=== PATIENT | female | born 1955 | race Caucasian/White ===

== ENCOUNTER → 2020-01-09 | Emergency (ER) | payer OTHER ==
[~2020-01-09] MED LIST: DEXTROSE 50% SYRINGE 50 ML IV ONE
== END | disposition left against medical advice (07) ==
LOC: ER 09:41
DX: R41.82 Altered mental status, unspecified (principal); Z53.21 Procedure and treatment not carried out due to patient leaving prior to being seen by health care provider

== ENCOUNTER → 2020-01-09 | Emergency (ER) | payer OTHER ==
[~2020-01-09] VITALS: Ht 165.1 cm; Wt 54.4 kg
[~2020-01-09] MED LIST changes: +D5W/SOD CHL 0.45% 1,000 ML IV ONE; +DEXTROSE (50%) 50ML SYRG IV ONE; +DEXTROSE 10% 1,000 ML IV ONE; -DEXTROSE 50% SYRINGE 50 ML IV ONE; +cefTRIAXone 1GM/50ML D5W 50 ML IV ONE
[2020-01-09 11:14] LABS: Basophils # (auto) 0.1 10 ^3/uL (0-0.2); Basophils % (auto) 0.8 % (0.0-2.0); Eosinophils # (auto) 0 10 ^3/uL (0-0.8); Eosinophils % (auto) 0.5 % (0.0-7.0); Hematocrit 43.2 % (36.0-46.0); Hemoglobin 14.2 g/dL (12.2-16.2); Lymphocytes # (auto) 1.5 10 ^3/uL (0.4-5.4); Lymphocytes % (auto) 18.3 % (10.0-50.0); Mean Corpuscular Hemoglobin 30.9 pg (28.0-32.0); Mean Corpuscular Hgb Conc. 32.9 g/dL (32.0-36.0); Mean Corpuscular Volume 94.2 fL (80.0-100.0); Monocytes # (auto) 0.2 10 ^3/uL (0-1.3); Neutrophils # (auto) 6.3 10 ^3/uL (1.6-8.6); Neutrophils % (auto) 77.4 % (37.0-80.0); Nucleated Red Blood Cells % 0.1 %; Platelet Count (auto) 435 10^3/uL (140-450); Red Blood Cells 4.59 10^6/uL (4.0-5.20); Red Cell Distribution Width 14.1 % (11.8-14.3); White Blood Cell 8.1 10^3/uL (4.4-10.8)
[2020-01-09 12:27] LABS: INR 0.91 (0.9-1.15); Partial Thromboplastin Time 30.1 sec (23.64-32.05)
[2020-01-09 13:50] LABS: Albumin 3.3 g/dL (3.4-5.0); Anion Gap 8 (5-15); Blood Urea Nitrogen 15 mg/dL (7-18); Calcium 9.3 mg/dL (8.5-10.1); Carbon Dioxide 27 mmol/L (21-32); Chloride 110 mmol/L (98-107); Glucose 55 mg/dL (74-106); Sodium 145 mmol/L (136-145)
[2020-01-09 13:55] LABS: Alanine Aminotransferase 17 U/L (13-56); Alkaline Phosphatase 101 U/L (45-117); Aspartate Aminotransferase 15 U/L (15-37); BUN/Creatinine Ratio 25.9; Bilirubin, Total 0.2 mg/dL (0.2-1.0); GFR African American 133 mL/min; GFR Non-African American 110 mL/min; Total Protein 8.4 g/dL (6.4-8.2)
[2020-01-09 16:19] LABS: Urine Bacteria MANY /hpf (None Seen); Urine Blood Negative /uL (Negative); Urine Specific Gravity 1.005 (1.001-1.035); Urine WBC 109 /hpf (0 - 5); Urine WBC Clumps PRESENT /hpf (None Seen)
[2020-01-09 21:45] VITALS: BP 136/45
== END | disposition home or self-care (01) ==
LOC: ER 09:45
DX: G93.41 Metabolic encephalopathy (principal); N39.0 Urinary tract infection, site not specified; E11.649 Type 2 diabetes mellitus with hypoglycemia without coma; I10 Essential (primary) hypertension; F17.210 Nicotine dependence, cigarettes, uncomplicated; Z88.2 Allergy status to sulfonamides
CPT/HCPCS: 36415; 70450; 71045; 80053; 81001; 82962; 83735; 84484; 85025; 85610; 85730; 93005; 96365; 96375; 99291; J0696; J7042

== ENCOUNTER 2020-10-20 11:09 | Emergency (ER) | payer OTHER ==
[~2020-10-20] VITALS: Ht 165.1 cm; Wt 76.2 kg
[2020-10-20 12:08] LABS: Basophils # (auto) 0.1 10 ^3/uL (0-0.2); Basophils % (auto) 0.5 % (0.0-2.0); Eosinophils # (auto) 0.2 10 ^3/uL (0-0.8); Hematocrit 43.5 % (36.0-46.0); Hemoglobin 14.5 g/dL (12.2-16.2); Lymphocytes # (auto) 1.9 10 ^3/uL (0.4-5.4); Lymphocytes % (auto) 16.1 % (10.0-50.0); Mean Corpuscular Hgb Conc. 33.4 g/dL (32.0-36.0); Mean Corpuscular Volume 92.8 fL (80.0-100.0); Monocytes # (auto) 0.6 10 ^3/uL (0-1.3); Monocytes % (auto) 5.2 % (0.0-12.0); Neutrophils # (auto) 9.1 10 ^3/uL (1.6-8.6); Neutrophils % (auto) 76.2 % (37.0-80.0); Platelet Count (auto) 272 10^3/uL (140-450); Red Blood Cells 4.69 10^6/uL (4.0-5.20); Red Cell Distribution Width 13.3 % (11.8-14.3)
[2020-10-20 12:19] LABS: Albumin 3.4 g/dL (3.4-5.0); Magnesium 2.6 mg/dL (1.6-2.6); Potassium 4.1 mmol/L (3.5-5.1)
[2020-10-20 12:23] LABS: BUN/Creatinine Ratio 19.2; Bilirubin, Total 0.3 mg/dL (0.2-1.0); Total Protein 7.9 g/dL (6.4-8.2)
[2020-10-20 16:08] VITALS: BP 162/69
== END 2020-10-20 19:50 | disposition left against medical advice (07) ==
LOC: ER 11:09
DX: E11.649 Type 2 diabetes mellitus with hypoglycemia without coma (principal); I10 Essential (primary) hypertension; R07.9 Chest pain, unspecified; R41.82 Altered mental status, unspecified; Z79.4 Long term (current) use of insulin; Z88.2 Allergy status to sulfonamides
CPT/HCPCS: 36415; 70450; 71045; 80053; 82010; 82962; 83735; 84484; 85025; 93005

== ENCOUNTER 2025-01-06 13:51 | Inpatient (IN) | payer OTHER ==
[~2025-01-06] VITALS: Ht 167.6 cm; Wt 79.0 kg
--- NOTE | 2025-01-06 13:56 | ED.PDOC ---
History of Present Illness HPI Comments 70-year-old female brought by paramedics from home because of nausea vomiting diarrhea for the past two days. Family members did state that she had a syncopal episode while in the bathroom this morning. She denies abdominal pain. States that she can not tolerate any liquids or solid food. She does have a history of hypertension diabetes. Her blood pressure on arrival was 140/77 with a heart rate of 86 saturation 97% on room air. She does ambulate with the help of a walker. Denies chest pain. Denies shortness a breath. Denies any other symptoms. Time Seen by MD: 13:53 Reviewed Notes: Nurses Notes, Medications, Allergies Allergies: Coded Allergies: Sulfamethoxazole w/Trimethoprim (Verified Allergy, Unknown, 01/09/20) Information Source: Patient, Emergency Med Personnel Mode of Arrival: EMS Severity: Moderate Timing: Days Duration: Since onset Past Medical History PAST MEDICAL HISTORY: DM, HTN Surgical History: Denies all surgeries SPECIAL NEEDS LIBRARIAN History: Denies all SPECIAL NEEDS LIBRARIAN Hx Family History Family History: Family hx of DM Social History Smoker: Cigarettes, Less Than 1 Pack/Day Alcohol: Denies ETOH Use Drugs: Denies Drug Use Lives In: Home Constitutional: denies: chills, diaphoresis, fatigue, fever, malaise, sweats, weakness, others EENTM: denies: blurred vision, double vision, ear bleeding, ear discharge, ear drainage, ear pain, ear ringing, eye pain, eye redness, hearing loss, mouth pain, mouth swelling, nasal discharge, nose bleeding, nose congestion, nose pain, photophobia, tearing, throat pain, throat swelling, voice changes, others Respiratory: denies: cough, hemoptysis, orthopnea, SOB at rest, shortness of breath, SOB with excertion, stridor, wheezing, others Cardiovascular: denies: chest pain, dizzy spells, diaphoresis, Dyspnea on exertion, edema, irregular heart beat, left arm pain, lightheadedness, palpitations, PND, syncope, others Gastrointestinal: reports: diarrhea, nausea, vomiting; denies: abdomen distended, abdominal pain, blood streaked bowels, constipated, dysphagia, difficulty swallowing, hematemesis, melena, poor appetite, poor fluid intake, rectal bleeding, rectal pain, others Genitourinary: denies: abnormal vagina bleeding, burning, dyspareunia, dysuria, flank pain, frequency, hematuria, incontinence, pain, , vagina discharge, urgency, others Neurological: denies: dizziness, fainting, headache, left sided numbness, left sided weakness, numbness, paresthesia, pre-existing deficit, right sided numbness, right sided weakness, seizure, speech problems, tingling, tremors, weakness, others Musculoskeletal: denies: back pain, gout, joint pain, joint swelling, muscle pain, muscle stiffness, neck pain, others Integumetry: denies: bruises, change in color, change in hair/nails, dryness, laceration, lesions, lumps, rash, wounds, others Allergic/Immunocompromised: denies: Difficulty Healing, Frequent Infections, Hives, Itching, others Hematologic/Lymphatic: denies: anemia, blood clots, easy bleeding, easy bruising, swollen glands, others Endocrine: denies: excessive hunger, excessive sweating, excessive thirst, excessive urination, flushing, intolerance to cold, intolerance to heat, unexplained weight gain, unexplained weight loss, others Psychiatric: denies: anxiety, bipolar disorder, depression, hopeless, panic disorder, schizophrenia, sleepless, suicidal, others Physical Exam General Appearance: Moderate Distress HEENT: Normal ENT Inspection, Pharynx Normal, TMs Normal Neck: Full Range of Motion, Non-Tender, Normal, Normal Inspection Respiratory: Chest Non-Tender, Lungs Clear, No Accessory Muscle Use, No Respiratory Distress, Normal Breath Sounds Cardiovascular: No Edema, No JVD, No Murmur, No Gallop, Normal Peripheral Pulses, Regular Rate/Rhythm Breast Exam: Deferred Gastrointestinal: No Organomegaly, Non Tender, No Pulsatile Mass, Normal Bowel Sounds, Soft Genitalia: Deferred Pelvic: Deferred Rectal: Deferred Extremities: No calf tenderness, Normal capillary refill, Normal inspection, Normal range of motion, Non-tender, No pedal edema Musculoskeletal : Apperance: Normal Neurologic: Alert, No Motor Deficits, No Sensory Deficits Cerebellar Function: NOT DONE Reflexes: NOT DONE Skin: Dry, Normal Color, Warm Peripheral Pulses: 3+ Radial (R), 3+ Radial (L) Lymphatic: No Adenopathy Was a procedure done? Was a procedure done?: No Differential Dx Considerations may include: Gastroenteritis Electrolyte imbalance X-Ray, Labs, Meds, VS Vital Signs Date Time Temp Pulse Resp B/P (MAP) Pulse Ox O2 Delivery O2 Flow Rate FiO2 01/06/25 14:00 98.1 87 18 140/84 (102) 96 01/06/25 13:55 86 Lab Test 01/06/25 14:12 Range/Units White Blood Count 11.0 H 4.4-10.8 10^3/uL Red Blood Count 4.39 4.0-5.20 10^6/uL Hemoglobin 13.0 12.2-16.2 g/dL Hematocrit 38.4 36.0-46.0 % Mean Corpuscular Volume 87.4 80.0-100.0 fL Mean Corpuscular Hemoglobin 29.7 28.0-32.0 pg Mean Corpuscular Hemoglobin Concent 34.0 32.0-36.0 g/dL Red Cell Distribution Width 13.3 11.8-14.3 % Platelet Count 339 140-450 10^3/uL Mean Platelet Volume 9.0 6.9-10.8 fL Neutrophils (%) (Auto) 73.7 37.0-80.0 % Lymphocytes (%) (Auto) 19.5 10.0-50.0 % Monocytes (%) (Auto) 5.4 0.0-12.0 % Eosinophils (%) (Auto) 1.0 0.0-7.0 % Basophils (%) (Auto) 0.4 0.0-2.0 % Neutrophils # (Auto) 8.1 1.6-8.6 10 ^3/uL Lymphocytes # (Auto) 2.2 0.4-5.4 10 ^3/uL Monocytes # (Auto) 0.6 0-1.3 10 ^3/uL Eosinophils # (Auto) 0.1 0-0.8 10 ^3/uL Basophils # (Auto) 0 0-0.2 10 ^3/uL Nucleated Red Blood Cells 0.0 % Sodium Level 146 H 136-145 mmol/L Potassium Level 3.7 3.5-5.1 mmol/L Chloride Level 112 H 98-107 mmol/L Carbon Dioxide Level 27 20-31 mmol/L Anion Gap 7 5-15 Blood Urea Nitrogen 18 9-23 mg/dL Creatinine 1.01 0.550-1.02 mg/dL Glomerular Filtration Rate Calc 59 >90 mL/min BUN/Creatinine Ratio 17.8 10.0-20.0 Serum Glucose 50 L 74-106 mg/dL Calcium Level 9.3 8.7-10.4 mg/dL Troponin I High Sensitivity 78 *H </=34 ng/L [place] [id number] Ph: [phone] DIAGNOSTIC IMAGING Diagnostic Imaging Report : [id number] Signed PATIENT: JAY MENDOZA ACCT: [id number] UNIT: [id number] : 1955 LOC: ER ROOM / BED: / AGE / SEX: 70 / F ADM STATUS: REG ER SERVICE 1359 ORDERING PHYSICIAN: VARSHA SINGER MD PROCEDURE(s): CXRP - CHEST PORTABLE REASON: sob ORDER NUMBER(s): [id number], ACCESSION NUMBER(s): [id number] CHEST RADIOGRAPH Indication: sob Technique: Single frontal view of the chest was obtained Comparison: CHEST PORTABLE on DOS: 10/20/20, CHEST PORTABLE on DOS: 01/09/20 FINDINGS: Lines and Tubes: None Lungs: No focal consolidation. Pleura: No effusion. No pneumothorax. Cardiomediastinal contours: Unremarkable Bones: No acute osseous abnormality. IMPRESSION: 1. No acute cardiopulmonary disease. ATED BY: JAMES HYATT Jr., DO DICTATED DATE/TIME: 01/06/251419 SIGNED BY: JAMES HYATT Jr., SIGNED DATE/TIME: 01/06/25 142 CC: [address] [address] Ph: [phone] DIAGNOSTIC IMAGING Diagnostic Imaging Report : [id number] Signed PATIENT: JAY MENDOZA ACCT: [id number] UNIT: [id number] : 1955 LOC: ER ROOM / BED: / AGE / SEX: 70 / F ADM STATUS: REG ER SERVICE 1413 ORDERING PHYSICIAN: VARSHA SINGER MD PROCEDURE(s): HWOCT - HEAD WITHOUT CONTRAST REASON: syncope ORDER NUMBER(s): [id number], ACCESSION NUMBER(s): [id number] EXAM: CT HEAD WITHOUT CONTRAST INDICATION: syncope TECHNIQUE: CT of the head without intravenous contrast. Radiation Dose Information: CT Dose: CTDI volume is 50.4 mGy. Dose-length product is 1033.98 mGy*cm The dose indicators for CT are the volume Computed Tomography (CT) Dose Index (CTDIvol) and the Dose Length Product (DLP), and are measured in units of mGy and mGy-cm, respectively. These indicators are not patient dose, but values generated from the CT scanner acquisition factors. The report includes radiation exposure data for exposures received during this examination. COMPARISON: HEAD WITHOUT CONTRAST on DOS: 10/20/20, HEAD WITHOUT CONTRAST on DOS: 01/09/20 FINDINGS: There is no evidence of acute intracranial hemorrhage, extra-axial collection, mass effect, midline shift, herniation or hydrocephalus. Area of encephalomalacia left occipital, posterior parietal lobe consistent with old infarct. Not present 10/20/2020. The ventricles, sulci and cisterns are age appropriate. The alvarado-white differentiation is intact. Patchy periventricular and subcortical white matter hypoattenuation is nonspecific but may be related to small vessel ischemic disease. Opacified right maxillary sinuses and mastoid air cells are clear. May represent a mucocele there is mass effect in the right nasal cavity. The surrounding soft tissues and osseous structures are unremarkable. IMPRESSION: 1. Old area of ischemia left occipital and posterior parietal lobes not present 10/20/2020. 2. No acute intracranial hemorrhage. 3. Opacification right maxillary sinus with opacification of the right infundibulum. ATED BY: JAMES HYATT Jr., DO DICTATED DATE/TIME: 01/06/25 1447 SIGNED BY: JAMES HYATT Jr., SIGNED DATE/TIME: 01/06/25 1447 CC: Patient alert. Complaining of nausea vomiting diarrhea. Vitals stable. Answering questions. Abdomen is soft nontender. She did have a syncopal episode while in the bathroom. Establish intravenous access. Was given fluids. Reviewed her history. Explained to the patient. Continue cardiac monitoring. EKG reviewed does not show any acute changes. Right bundle branch block. Cardiac marker elevated. Was given Lovenox. Unstable for transfer. CT scan of the head does reveal old stroke. Possibly will need MRI. [facility] approved inpatient admission [id number]. Time of 1ST Reevaluation: 14:01 Reevaluation 1ST: Unchanged Patient Education/Counseling: Diagnosis, Treatment, Prognosis Family Education/Counseling: No Family Present Departure 1 Departure Time of Disposition: 14:03 Impression: Primary Impression: NSTEMI (non-ST elevated myocardial infarction) Additional Impressions: Uncontrolled diabetes mellitus Qualified Codes: E13.65 - Other specified diabetes mellitus with hyperglycemia Near syncope Disposition: ADMITTED INPATIENT Admit to: Med Surg Condition: Guarded Critical Care Note Critical Care Time?: No Stability Stability form required: No Heart Score Heart Score: Heart Score Response (Comments) Value History Slightly Suspicious 0 EKG Normal 0 Age >65 2 Risk Factors >3 or Hx ASHD 2 Troponin Normal limit 0 Total 4 I personally scribed for VARSHA SINGER MD ([email or web address]) on 01/06/25 at 15:09. Electronically submitted by Claudine Acuña ([email or web address]). I personally scribed for VARSHA SINGER MD ([email or web address]) on 01/06/25 at 15:10. Electronically submitted by Claudine Acuña ([email or web address]). VARSHA SINGER MD Jan 06, 2025 13:56
--- NOTE | 2025-01-06 14:22 | DVH ---
CHEST RADIOGRAPH Indication: sob Technique: Single frontal view of the chest was obtained Comparison: CHEST PORTABLE on DOS: 10/20/20, CHEST PORTABLE on DOS: 01/09/20 FINDINGS: Lines and Tubes: None Lungs: No focal consolidation. Pleura: No effusion. No pneumothorax. Cardiomediastinal contours: Unremarkable Bones: No acute osseous abnormality. IMPRESSION: 1. No acute cardiopulmonary disease.
--- NOTE | 2025-01-06 14:22 | ECG ---
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
[2025-01-06 14:26] LABS: Basophils # (auto) 0 10 ^3/uL (0-0.2); Basophils % (auto) 0.4 % (0.0-2.0); Eosinophils # (auto) 0.1 10 ^3/uL (0-0.8); Hematocrit 38.4 % (36.0-46.0); Lymphocytes # (auto) 2.2 10 ^3/uL (0.4-5.4); Lymphocytes % (auto) 19.5 % (10.0-50.0); Mean Corpuscular Hemoglobin 29.7 pg (28.0-32.0); Mean Corpuscular Volume 87.4 fL (80.0-100.0); Monocytes # (auto) 0.6 10 ^3/uL (0-1.3); Monocytes % (auto) 5.4 % (0.0-12.0); Neutrophils # (auto) 8.1 10 ^3/uL (1.6-8.6); Neutrophils % (auto) 73.7 % (37.0-80.0); Platelet Count (auto) 339 10^3/uL (140-450); Red Blood Cells 4.39 10^6/uL (4.0-5.20); Red Cell Distribution Width 13.3 % (11.8-14.3)
[2025-01-06 14:32] LABS: Potassium 3.7 mmol/L (3.5-5.1)
[2025-01-06 14:33] LABS: Anion Gap 7 (5-15); Carbon Dioxide 27 mmol/L (20-31)
[2025-01-06 14:34] LABS: Calcium 9.3 mg/dL (8.7-10.4)
[2025-01-06 14:38] LABS: BUN/Creatinine Ratio 17.8 (10.0-20.0); Blood Urea Nitrogen 18 mg/dL (9-23)
[2025-01-06 14:45] LABS: Chloride 112 mmol/L (98-107); Glucose 50 mg/dL (74-106); Sodium 146 mmol/L (136-145)
--- NOTE | 2025-01-06 14:49 | DVH ---
EXAM: CT HEAD WITHOUT CONTRAST INDICATION: syncope TECHNIQUE: CT of the head without intravenous contrast. Radiation Dose Information: CT Dose: CTDI volume is 50.4 mGy. Dose-length product is 1033.98 mGy*cm The dose indicators for CT are the volume Computed Tomography (CT) Dose Index (CTDIvol) and the Dose Length Product (DLP), and are measured in units of mGy and mGy-cm, respectively. These indicators are not patient dose, but values generated from the CT scanner acquisition factors. The report includes radiation exposure data for exposures received during this examination. COMPARISON: HEAD WITHOUT CONTRAST on DOS: 10/20/20, HEAD WITHOUT CONTRAST on DOS: 01/09/20 FINDINGS: There is no evidence of acute intracranial hemorrhage, extra-axial collection, mass effect, midline s hift, herniation or hydrocephalus. Area of encephalomalacia left occipital, posterior parietal lobe consistent with old infarct. Not present 10/20/2020. The ventricles, sulci and cisterns are age appropriate. The alvarado-white differentiation is intact. Patchy periventricular and subcortical white matter hypoattenuation is nonspecific but may be related to small vessel ischemic disease. Opacified right maxillary sinuses and mastoid air cells are clear. May represent a mucocele there is mass effect in the right nasal cavity. The surrounding soft tissues and osseous structures are unremarkable. IMPRESSION: 1. Old area of ischemia left occipital and posterior parietal lobes not present 10/20/2020. 2. No acute intracranial hemorrhage. 3. Opacification right maxillary sinus with opacification of the right infundibulum.
[2025-01-06] MEDS: DEXTROSE (50%) 50ML SYRG IV ONE (15:33)
[2025-01-06] MEDS: DEXTROSE 50% SYRINGE 50 ML IV ONE (15:35)
[2025-01-06] MEDS: SODIUM CHLORIDE 0.9% 1,000 ML IV ONE ×3 (15:45→18:14)
[2025-01-06] MEDS: DEXTROSE 10% 1,000 ML IV ONE (15:45)
[2025-01-06 16:44] VITALS: PULSE 85; RESP 17; O2SAT 97
[2025-01-06] MEDS: PIPERACILLIN-TAZOB 3.375GM 100 ML IV ONE (16:54)
[2025-01-06] MEDS: ENOXAPARIN SOD 100 MG/1 ML SYRINGE SC ONE (17:21)
[2025-01-06] MEDS: metroNIDAZOLE 500MG/100ML 100 ML IV ONE (17:25)
[2025-01-06 19:35] VITALS: PULSE 85; RESP 17; O2SAT 97
[2025-01-06] MEDS ORDERED: ACETAMINOPHEN 325 MG TAB PO PRN (21:30)
[2025-01-06] MEDS ORDERED: DOCUSATE SOD 100 MG CAP PO PRN (21:30)
[2025-01-06] MEDS ORDERED: ONDANSETRON HCL 4 MG/2 ML VIAL IV PRN (21:30)
--- NOTE | 2025-01-06 22:02 | DVHHPRES ---
History of Present Illness Resident Creating Document: TAMIA GARCIA RESIDENT History of Present Illness This is a 70-year-old male with past medical history of hypertension, dyslipidemia, type 2 diabetes mellitus, stroke in April of 2023 with no residual deficits. The patient presented to the ED due to syncopal episode. Per daughter, she found out patient lying down half of the body on the floor half of the right side lying in the toilet. The daughter states that the patient was complaining of chest pain below the right breast and was having nausea/vomiting after syncopal episode. Patient does not remember the event and is not able to provide a clear history. Most of the details were obtained from daughter. On my examination, the patient was reporting nausea but no vomiting since admission. The patient still complaining of right rib cage pain with the right breast that gets worse with palpation. The pain is located the level of the last rib in the right side with no specific pattern of radiation. Patient is currently on 2 L of oxygen through nasal cannula saturating 97%, denies fever, chills, chest pain, shortness of breath or any other complaints at this time. Initial labs showed a WBC of 11.0, BMP was grossly unremarkable and troponins came back slightly elevated. EKG showed sinus rhythm with a right bundle branch block but no ST segment elevation or depression at this time. Initial chest x- ray showed no evidence of clear consolidations/pneumonia, vascular congestion or any other intrathoracic disease. Initial head CT showed all area of ischemia in the left occipital and posterior parietal lobes. No acute ischemia or hemorrhage at this time. The patient denies palpitations, we will admit the patient for further assessment and management. Past medical history: Diabetes type 2, hypertension, dyslipidemia, stroke in April of 2023 Home medications: Humulin 40 units daily, insulin R 15 units q.a.m., 15 units q.p.m., lisinopril 40 mg daily, atorvastatin 40 mg daily, anastrozole 1 mg daily, aspirin 81 mg daily Social history: Smokes few cigarettes daily, no alcohol or drugs. 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 Endocrine: Diabetes Past Surgical History: None Family History: None Smoke: <1 pack per day ALCOHOL: none Drugs: None Lives: with Family Domestic Violence: Neg Review of Systems Constitutional: Yes: Weakness, Malaise; No: Fever, Chills, Sweats, Other Eyes: No: Pain, Vision change, Conjunctivae inflammation, Eyelid inflammation, Other, Redness ENT: No: Ear pain, Ear discharge, Nose pain, Nose discharge, Nose congestion, Mouth pain, Mouth swelling, Throat pain, Throat swelling, Other Respiratory: No: Cough, Dry, Shortness of breath, SOB with excertion, Wheezing, Hemoptysis, Pleuritic Pain, Sputum, Wheezing, Other Cardiovascular: Chest Pain (Sided chest pain in the last review of the right side below the right breast.); No: Palpitations, Orthopnea, Paroxysmal Noc. Dyspnea, Edema, Lt Headedness, Other Gastrointestinal: Nausea; No: Vomiting, Abdominal Pain, Diarrhea, Constipation, Melena, Hematochezia, Other Genitourinary: No Dysuria, No Frequency, No Incontinence, No Hematuria, No Retention, No Other Musculoskeletal: No: other, neck pain, shoulder pain, arm pain, back pain, hand pain, leg pain, foot pain Skin: No: Rash, Lesions, Jaundice, Bruising, Other Neurological: Weakness; No: Numbness, Incoordination, Change in speech, Confusion, Seizures, Other Allergies: Coded Allergies: Sulfamethoxazole w/Trimethoprim (Verified Allergy, Unknown, 01/09/20) Exam Vital Signs Vital Signs Date Time Temp Pulse Resp B/P (MAP) Pulse Ox O2 Delivery O2 Flow Rate FiO2 01/06/25 19:35 85 17 97 Room Air* 0 21 01/06/25 19:00 156/72 (100) 01/06/25 16:44 97.6 97.6 General Appearance: Alert, Oriented X3, Cooperative, No acute distress HEENT: Atraumatic, PERRLA, EOMI, Mucous membr. moist/pink Respiratory: Clear to auscultation, Normal air movement Cardiovascular: Regular rate, Normal S1, Normal S2, No murmurs Abdominal: Normal bowel sounds, Soft, No tenderness, No hepatospenomegaly, Other (That is right upper quadrant tenderness at the level of the last right sided rib below the right breast.) Extremities: No clubbing, No cyanosis, No edema, Normal pulses, No tenderness/swelling Skin: No rashes, No breakdown, No significant lesion Neuro: Normal gait, Normal speech, Strength at 5/5 X4 ext, Normal tone, Sensation intact, Cranial nerves 3-12 NL, Reflexes 2+ Psych/Mental Status: Mental status NL, Mood NL Labs/Xrays Labs Test 01/06/25 17:42 01/06/25 16:39 01/06/25 15:45 01/06/25 14:12 Range/Units Troponin I High Sensitivity 80 *H </=34 ng/L POC Glucose 121 H 70-106 mg/dl Lactic Acid Level 1.0 0.4-2.0 mmol/L White Blood Count 11.0 H 4.4-10.8 10^3/uL Red Blood Count 4.39 4.0-5.20 10^6/uL Hemoglobin 13.0 12.2-16.2 g/dL Hematocrit 38.4 36.0-46.0 % Mean Corpuscular Volume 87.4 80.0-100.0 fL Mean Corpuscular Hemoglobin 29.7 28.0-32.0 pg Mean Corpuscular Hemoglobin Concent 34.0 32.0-36.0 g/dL Red Cell Distribution Width 13.3 11.8-14.3 % Platelet Count 339 140-450 10^3/uL Mean Platelet Volume 9.0 6.9-10.8 fL Neutrophils (%) (Auto) 73.7 37.0-80.0 % Lymphocytes (%) (Auto) 19.5 10.0-50.0 % Monocytes (%) (Auto) 5.4 0.0-12.0 % Eosinophils (%) (Auto) 1.0 0.0-7.0 % Basophils (%) (Auto) 0.4 0.0-2.0 % Neutrophils # (Auto) 8.1 1.6-8.6 10 ^3/uL Lymphocytes # (Auto) 2.2 0.4-5.4 10 ^3/uL Monocytes # (Auto) 0.6 0-1.3 10 ^3/uL Eosinophils # (Auto) 0.1 0-0.8 10 ^3/uL Basophils # (Auto) 0 0-0.2 10 ^3/uL Nucleated Red Blood Cells 0.0 % Sodium Level 146 H 136-145 mmol/L Potassium Level 3.7 3.5-5.1 mmol/L Chloride Level 112 H 98-107 mmol/L Carbon Dioxide Level 27 20-31 mmol/L Anion Gap 7 5-15 Blood Urea Nitrogen 18 9-23 mg/dL Creatinine 1.01 0.550-1.02 mg/dL Glomerular Filtration Rate Calc 59 >90 mL/min BUN/Creatinine Ratio 17.8 10.0-20.0 Serum Glucose 50 L 74-106 mg/dL Calcium Level 9.3 8.7-10.4 mg/dL Assessment/Plan Assessment/Plan Assessment/Plan Syncopal episode likely due to hypoglycemia? R/O cardiac syncope ruled out acute stroke ruled out orthostatic hypotension -initial chest x-ray was grossly clear with no evidence of consolidation or vascular congestion. -head CT showed old areas of ischemia the left occipital and posterior parietal lobes -orthostatic vitals supine 130/44 mmHg, sitting 140 force/57 mmHg, standing 123/53 mmHg (negative) -currently on 2 L of oxygen through nasal cannula saturating 97% -troponins were slightly elevated -echocardiogram was ordered -EKG showed sinus rhythm with a right bundle branch block with no ST segment elevation or depression. -monitor blood pressure closely -monitor blood glucose closely NSTEMI likely type II -Trops were slightly elevated at 78-74-80 -Trend trops Primary hypertension -Restart lisinopril 40mg daily -Monitor BP Dyslipidemia -Ordered lipid panel -Atorvastatin 40mg daily Type II Diabetes Mellitus -Ordered HbA1c -currently hypoglycemic, receiving dextrose -Will restart Lantus once patient is stabilized Left hand pain/inflammation, R/O dislocation or fracture -Ordered Left hand xray -Acetaminophen and ketorolac for pain modulation Goals of care discussed with the patient and daughter at bedside for > 35min, FULL CODE Plan discussed with Dr. Chambers Plan discussed with: Patient, Daughter My Orders Orders - TAMIA GARCIA Procedure Category Date Status Time Admit ADMIT 01/06/25 Transmitted 21:25 Code Status CODE 01/06/25 Transmitted 21:25 Vital Signs TRU 01/06/25 In Process 21:25 Review Orders With TRU 01/06/25 In Process Adm. 21:25 Encourage Activity As TRU 01/06/25 In Process Tolerate 21:25 Regular Diet DIET 01/07/25 Transmitted Breakfast Docusate Sodium PHA 01/06/25 Logged Capsule (Colace 21:30 Acetaminophen Tablet PHA 01/06/25 Logged (Tylenol Tablet) 21:30 Notify Of Changes TRU 01/06/25 In Process From Base 21:25 Advance Directive TRU 01/06/25 In Process 21:25 Urinalysis LAB 01/06/25 Logged 21:25 Lipid Panel LAB 01/06/25 Logged 21:25 Patient Condition ORDERS 01/06/25 Transmitted 21:25 Allergies TRU 01/06/25 In Process 21:25 Ondansetron Hcl PHA 01/06/25 Logged (Zofran) 21:30 Drug Screen LAB 01/06/25 Logged 21:25 Hemoglobin A1c LAB 01/06/25 In Process 21:25 Enoxaparin Sodium PHA 01/07/25 Logged (Lovenox) 10:00 Date of Service: Jan 06, 2025 Billing Provider: FER CHAMBERS MD Common Visit Codes: 59978-[id number] INP/OBS CARE (HIGH) Secondary Visit Codes: [id number] CARE PLAN 30 MINUTES TAMIA GARCIA RESIDENT Jan 06, 2025 22:02 FER CHAMBERS MD Jan 11, 2025 17:19
--- NOTE | 2025-01-06 22:08 | DVH ---
CLINICAL INDICATION: deformed hand TECHNIQUE: 3 radiographic views of the right hand were obtained. Comparison: None FINDINGS/IMPRESSION: Healing fracture distal aspect 5th metacarpal The visualized joint space is well maintained. The alignment is anatomical. There is no radiopaque foreign body.
[2025-01-06 22:28] LABS: Alanine Aminotransferase 16 U/L (7-40); Albumin 3.6 g/dL (3.2-4.8); Alkaline Phosphatase 97 U/L (46-116); Aspartate Aminotransferase 22 U/L (13-40); Cholesterol 128 mg/dL (< 200); LDL Cholesterol 64 mg/dL (< 100); Total Protein 6.4 g/dL (5.7-8.2)
[2025-01-06 22:31] LABS: Bilirubin, Direct < 0.1 mg/dL (<0.3); Bilirubin, Total 0.3 mg/dL (0.2-1.0); HDL Cholesterol 32 mg/dL (40-59); Triglycerides 223 mg/dL (< 150)
[2025-01-07 06:21] LABS: Barbiturate Scree,Urine Neg (NEGATIVE); Opiate Scree,Urine Neg (NEGATIVE)
[2025-01-07 06:22] LABS: Amphetamine Screen, Urine Neg (NEGATIVE); Benzodiazephine Screen, Urine Neg (NEGATIVE); Cannabinoid Screen, Urine Neg (NEGATIVE); Cocaine Screen, Urine Neg (NEGATIVE); Phencyclidine Screen, Urine Neg (NEGATIVE)
[2025-01-07] MEDS: INSULIN LANTUS (GLARGINE) 1 /0.01ml (100units/ml) SC SCH (06:35)
[2025-01-07] MEDS: LISINOPRIL 20 MG TAB PO SCH (06:35)
[2025-01-07 06:37] LABS: Urine Bacteria FEW /hpf (None Seen); Urine Blood Negative /uL (Negative); Urine Clarity Clear (Clear); Urine Color Light-Yellow (Yellow); Urine Protein, UAD 2+ (Negative); Urine Specific Gravity 1.008 (1.001-1.035); Urine Squamous Epithelial Cell FEW /hpf (<5); Urine Urobilinogen Normal (Negative); Urine WBC 3 /HPF (0-5); Urine pH 5.5 (5.0-9.0)
[2025-01-07 07:45] VITALS: PULSE 81; RESP 16; O2SAT 93
[2025-01-07] MEDS: ENOXAPARIN SOD 40 MG/0.4 ML SYRINGE SC SCH (10:58)
[2025-01-07] MEDS: ASPirin 81 mg TAB PO SCH (10:59)
[2025-01-07] MEDS: ATORVASTATIN 20 MG TAB PO SCH (11:00)
[2025-01-07] MEDS ORDERED: DEXTROSE (50%) 50ML SYRG IV PRN (12:30)
--- NOTE | 2025-01-07 13:55 | DVHPN2 ---
Assessment/Plan Assessment/Plan Progress note 70 yo F with CVA IDDM admitted for syncope and fall. Per daughter bedside, patient was seen before with same issues, had episodes of hypoglycemia in the past. on insulin regular and NPH. Progress note Alert oriented x2 Clear breath sounds s1 s2 rrr no murmur abdomen soft nontender no le edema labs ekg imaging reviewed assessment and plan IDDM with hypo and hyperglycemia syncope 2/2 above? rule out cardiac typ2 NH demand ischemia RBBB hand pain s/p fall hypertension hld old CVA dementia likely vascular hold insulin, start nph tomorrow ISS today d10 if persistently hypoglycemic toradol tylenol resume jaky emeds telemetry, if no event can be discharged tomorrow diet cardiac dvt ppx lovenox Plan discussed with: Patient My Orders Orders - PRIMITIVO OSEGUERA MD Procedure Category Date Status Time Insulin Nph Isophane PHA 01/08/25 In Process (Human) (Novolin N) 07:00 Glucose Blood PHA 01/07/25 In Process (Accu-Chek Comfort 17:00 Insulin R (Human) PHA 01/07/25 In Process (Insulin R) 22:00 Insulin R (Human) PHA 01/07/25 In Process (Insulin R) 17:00 Dextrose 50% Syringe PHA 01/07/25 In Process 12:30 Basic Metabolic Panel LAB 01/08/25 Verified 04:00 Complete Blood Count LAB 01/08/25 Verified 04:00 Magnesium LAB 01/08/25 Verified 04:00 Phosphorus LAB 01/08/25 Verified 04:00 Consistent DIET 01/07/25 Transmitted Carb(Ccho)Diabetes Lunch Date of Service: Jan 07, 2025 Billing Provider: PRIMITIVO OSEGUERA MD Common Visit Codes: 36210-[id number] INP/OBS CARE(HIGH) PRIMITIVO OSEGUERA MD Jan 07, 2025 13:55
--- NOTE | 2025-01-07 14:26 | DVHSR ---
APPROVED REPORT EXAM: Two-dimensional and M-mode echocardiogram with Doppler and color Doppler. Blood Pressure: 182/66 mmHg INDICATION ef RISK FACTORS Height: 5'6, Weight: 200 DIMENSIONS LVDd4.5 (3.8-5.7cm)LA (2D)4.6 (1.9-4.0cm)Aortic Root3.2 (2.0-3.7cm) LVDs2.7 (2.5-4.0cm)LA (MM) (1.9-4.0cm)Aortic Cusp Exc1.1 (1.5-2.0cm) EF (%) 65.0 (55-70%)Rt. Atrium3.5 (1.9-4.0cm)Asc. Aorta3.0 cm IVSd1.1 (0.7-1.1cm)RV (D)3.6 (1.8-2.4cm) PWd1.3 (0.7-1.1cm) Mitral Valve MitralMitral Stenosis E wave0.98m/sMV Mean GR.4mmHg A wave1.41m/sMV Peak GR.59mmHg E/A ratio0.72D MVAcm2 DECEL [id number] 1/2 Timems Aortic Valve Aortic ValveAortic Stenosis V11.06m/Radihka Mean GR.23mmHg V23.02m/Radhika Peak GR.36mmHg LVOT Diameter2.1 (1.8-2.4cm)Doppler AVA1.22cm2 Pulmonic Valve V21.15m/s Tricuspid Valve TR Velocity2.15m/s [id number] Conclusion lvef 55-60% by visual estimate normal rv function normal atria no severe valve abnormalities noted moderate MAC, mild mitral stenosis mean gradient of 3.5 mmhg
--- NOTE | 2025-01-07 15:28 | DVHINCON2 ---
[facility] 01/07/25 1528: Date Seen: Jan 07, 2025 Referring Physician MD Alana Reason for Consultation NSTEMI History of Present Illness This is a 70-year-old female patient who presents to emergency room with chief complaint of syncope, nausea, and vomiting. According to the patient's daughter who was at bedside, the patient was in the restroom when suddenly a loud commotion was heard. Per the patient's daughter, when she went to check on the patient the patient was on the floor in between the bath tub and the toilet. The patient was awake but not verbally responsive. Per the patient's daughter, her blood sugar was checked and was in the 70s per home monitor. Patient also had two episodes of nausea with emesis. EMS was called and the patient was brought to the emergency room. Upon emergency room arrival, the patient's blood glucose was noted to be 50. Cardiology has been consulted at this time for elevated troponin level. Initial twelve lead electrocardiogram reveals normal sinus rhythm with right bundle branch block, left ventricular hypertrophy and prolonged QTc interval. Initial troponin level of 78ng/L with flat trend thereafter. The patient denies any cardiac symptoms. Significant past medical history includes hypertension, dyslipidemia, type 2 diabetes mellitus, CVA without deficit, asthma, breast cancer status post lumpectomy/radiation/chemo, previous tobacco use and obesity. The patient denies following up with a log grader in the outpatient setting. Past Medical History Past medical history reviewed. No other significant than mentioned above. Past Surgical History Left Breast lumpectomy Cholecystectomy Family History Family history reviewed. Social History Patient has a 15 pack-year history, quit approximately one year ago Denies any alcohol use Denies any drug use Allergies: Coded Allergies: Sulfamethoxazole w/Trimethoprim (Verified Allergy, Unknown, 01/09/20) Home Meds Home medications reviewed. Current Medications Current Medications Medications (Trade) Dose Ordered Sig/Kaveh Route PRN Reason Start Time Stop Time Status Last Admin Docusate Sodium (Colace Capsule) 100 mg BIDPRN PRN PO FOR CONSTIPATION 01/06/25 21:30 01/07/25 12:21 DC Acetaminophen (Tylenol Tablet) 650 mg Q6HP PRN PO PAIN SCALE 1-3 OR TEMP>100.4 01/06/25 21:30 01/07/25 12:21 DC Ondansetron HCl (Zofran) 4 mg Q4HP PRN IV NAUSEA / VOMITING 01/06/25 21:30 01/07/25 12:21 DC Enoxaparin Sodium (Lovenox) 40 mg DAILY SC 01/07/25 10:00 01/07/25 10:58 Lisinopril (Zestril Tablet) 40 mg DAILY PO 01/07/25 10:00 01/07/25 06:35 Atorvastatin Calcium (Lipitor) 40 mg DAILY PO 01/07/25 10:00 01/07/25 11:00 Aspirin 81 mg DAILY PO 01/07/25 10:00 01/07/25 10:59 Insulin Glargine (Lantus) 20 units QAM SC 01/07/25 07:00 01/07/25 12:21 DC Insulin Human NPH (NovoLIN N) 30 units QAM SC 01/08/25 07:00 Diagnostic Test (Pha) (Accu-Chek Comfort Curve T) 1 strip ACHS 01/07/25 17:00 Insulin Human Regular (InsuLIN R) HS SC 01/07/25 22:00 Insulin Human Regular (InsuLIN R) AC SC 01/07/25 17:00 Dextrose 50 ml UD PRN IV Blood Sugar LESS THAN 60 01/07/25 12:30 Hydralazine HCl (Apresoline Injection) 10 mg Q6HP PRN IV SBP>150 01/07/25 15:15 UNV Review of Systems Constitutional: No symptom reported Ears, Nose, & Throat: No symptom reported Eyes: No symptom reported Neurological: Syncope Pulmonary/Respiratory: No symptoms reported Cardiovascular: No symptom reported Gastrointestinal: Nausea, vomiting Genitourinary: No symptom reported Musculoskeletal: No symptom reported Skin: No symptom reported Psychiatric: No symptom reported Endocrine: No symptom reported Hematologic/Lymphatic: No symptom reported Vital Signs Vital Signs Date Time Temp Pulse Resp B/P (MAP) Pulse Ox O2 Delivery O2 Flow Rate FiO2 01/07/25 12:00 74 21 184/64 (104) 97 01/07/25 11:00 97.9 97.9 01/07/25 07:45 Room Air* 0 21 Physical Exam General Appearance: Cooperative. Obese Pulmonary/Respiratory: Clear, bilateral breaths sounds. Cardiovascular/Chest: Regular rate and rhythm. Peripheral Pulses: 2+ Radial (R). 2+ Radial (L). 2+ Pedal (R). 2+ Pedal (L) Abdominal Exam: Normal bowel sounds. Ankle Exam: Negative ankle edema Lower extremities: Negative lower extremity edema Neuro/Mental Status: A/OX4, coherent. Thoughts/Psych: Normal thought pattern. Appropriate mood and affect. Good judgment and insight. Appearance: No acute distress. Skin Exam: Normal inspection. Normal color. Warm and dry. Labs/Diagnostic Data Labs Test 01/07/25 13:52 01/07/25 06:39 01/07/25 04:40 01/06/25 17:42 Range/Units POC Glucose 246 H 70-106 mg/dl Troponin I High Sensitivity 84 *H </=34 ng/L Urine Color Light-yellow Yellow Urine Clarity Clear Clear Urine pH 5.5 5.0-9.0 Urine Specific [place] 1.008 1.001-1.035 Urine Protein 2+ H Negative Urine Ketones Negative Negative Urine Blood Negative Negative /uL Urine Nitrite Negative Negative Urine Bilirubin Negative Negative Urine Urobilinogen Normal Negative mg/dL Urine Leukocyte Esterase Negative Negative /uL Urine RBC None seen 0 - 4 /hpf Urine Microscopic WBC 3 0-5 /HPF Urine Squamous Epithelial Cells Few <5 /hpf Urine Bacteria Few H None Seen /hpf Urine Glucose Normal Normal mg/dL Urine Opiates Screen Neg NEGATIVE Urine Fentanyl Screen Neg NEGATIVE Urine Barbiturates Screen Neg NEGATIVE Urine Phencyclidine Screen Neg NEGATIVE Urine Amphetamines Screen Neg NEGATIVE Urine Benzodiazepines Screen Neg NEGATIVE Urine Cocaine Screen Neg NEGATIVE Urine Cannabinoids Screen Neg NEGATIVE Total Bilirubin 0.3 0.2-1.0 mg/dL Direct Bilirubin < 0.1 <0.3 mg/dL Aspartate Amino Transferase (AST) 22 13-40 U/L Alanine Aminotransferase (ALT) 16 7-40 U/L Alkaline Phosphatase 97 46-116 U/L Total Protein 6.4 5.7-8.2 g/dL Albumin 3.6 3.2-4.8 g/dL Triglycerides Level 223 H < 150 mg/dL Cholesterol Level 128 < 200 mg/dL LDL Cholesterol 64 < 100 mg/dL HDL Cholesterol 32 L 40-59 mg/dL Test 01/06/25 15:45 01/06/25 14:12 Range/Units Lactic Acid Level 1.0 0.4-2.0 mmol/L White Blood Count 11.0 H 4.4-10.8 10^3/uL Red Blood Count 4.39 4.0-5.20 10^6/uL Hemoglobin 13.0 12.2-16.2 g/dL Hematocrit 38.4 36.0-46.0 % Mean Corpuscular Volume 87.4 80.0-100.0 fL Mean Corpuscular Hemoglobin 29.7 28.0-32.0 pg Mean Corpuscular Hemoglobin Concent 34.0 32.0-36.0 g/dL Red Cell Distribution Width 13.3 11.8-14.3 % Platelet Count 339 140-450 10^3/uL Mean Platelet Volume 9.0 6.9-10.8 fL Neutrophils (%) (Auto) 73.7 37.0-80.0 % Lymphocytes (%) (Auto) 19.5 10.0-50.0 % Monocytes (%) (Auto) 5.4 0.0-12.0 % Eosinophils (%) (Auto) 1.0 0.0-7.0 % Basophils (%) (Auto) 0.4 0.0-2.0 % Neutrophils # (Auto) 8.1 1.6-8.6 10 ^3/uL Lymphocytes # (Auto) 2.2 0.4-5.4 10 ^3/uL Monocytes # (Auto) 0.6 0-1.3 10 ^3/uL Eosinophils # (Auto) 0.1 0-0.8 10 ^3/uL Basophils # (Auto) 0 0-0.2 10 ^3/uL Nucleated Red Blood Cells 0.0 % Sodium Level 146 H 136-145 mmol/L Potassium Level 3.7 3.5-5.1 mmol/L Chloride Level 112 H 98-107 mmol/L Carbon Dioxide Level 27 20-31 mmol/L Anion Gap 7 5-15 Blood Urea Nitrogen 18 9-23 mg/dL Creatinine 1.01 0.550-1.02 mg/dL Glomerular Filtration Rate Calc 59 >90 mL/min BUN/Creatinine Ratio 17.8 10.0-20.0 Serum Glucose 50 L 74-106 mg/dL Hemoglobin A1c 8.4 H <5.7 % A1C Calcium Level 9.3 8.7-10.4 mg/dL B-Type Natriuretic Peptide 85.85 0-100 pg/mL Assessment Hypertensive urgency NSTEMI, rule out coronary ischemia Questionable syncopal episode Dyslipidemia Mild mitral stenosis Type 2 diabetes mellitus with hypoglycemia History of CVA without deficit ?Dementia Obesity Plan/Recommendation We will continue with the following plan/recommendations (Dr. Amor): * Transthoracic echocardiogram reveals EF 55-60% * Aggressive BP control * Up-Titrate as needed * Lipid-lowering agent * Close Cardiac surveillance * Nuclear stress test Patient seen and examined at bedside with . Elevated troponin level can be secondary to hypertensive urgency, but given the patient's comorbidities we will recommend an inpatient stress test. We will schedule the patient at first availability. Thank you for allowing us to care for this patient. Please call with any questions or concerns. Critical care time spent: 43 minutes This medical document was created using an electronic medical record system with voice recognition software and computerized dictation system. Although this document has been carefully reviewed, there might still be some phonetic and typographical errors. Occasional wrong-word or ``sound-alike substitutions may have occurred due to the inherent limitations of voice recognition software. These areas are purely typographical due to imperfections of the software programs and do not reflect any compromise in the patient's medical care. Please read the chart carefully and recognize, using context, where these substitutions have occurred. Plan discussed with: Patient, Daughter NYHA Physical activity limitations: NA Date of Service: Jan 07, 2025 Billing Provider: SUSI AMOR MD Cardiology Common Codes: [id number] INP/OBS CARE (High) Cardiology Consultation Codes: [id number] CONSULT <45MIN SUSI AMOR MD 01/07/25 2005: Date Seen: Jan 07, 2025 Allergies: Coded Allergies: Sulfamethoxazole w/Trimethoprim (Verified Allergy, Unknown, 01/09/20) Plan/Recommendation Pt seen at bedside syncope work up ischemic eval optimize bp further recommendations per clinical progression, we will follow up friday please alert us for any significant changes or concerns Plan discussed with: Patient [facility] Jan 07, 2025 15:28 SUSI AMOR MD Jan 07, 2025 20:05
[2025-01-07] MEDS: hydrALAZINE HCL 20 MG/ML VL IV PRN (16:08)
[2025-01-07] MEDS: InsuLIN REG 1unit/0.01ml Soln (100units/ml) SC SCH ×2 (17:20→22:00)
[2025-01-07] MEDS: ACCU-CHEK COMFORT CURVE STRIP VI SCH (17:20)
[2025-01-07 20:00] VITALS: PULSE 98; RESP 17; O2SAT 96
[2025-01-07] MEDS: SPIRONOLACTONE 25 MG TAB PO ONE (20:49)
[2025-01-07 22:05] VITALS: BP 165/64; PULSE 72; PULSE 97; RESP 16; RESP 18; TEMP 99; O2SAT 96
[2025-01-07] MEDS ORDERED: ASPI1TAB20 PO (23:31)
[2025-01-07] MEDS ORDERED: INSREG3 SC (23:31)
[2025-01-07] MEDS ORDERED: INSUINJ2 SC (23:31)
[2025-01-07] MEDS ORDERED: ANAS1TAB7 PO (23:31)
[2025-01-07] MEDS ORDERED: LISI40TA16 PO (23:31)
[2025-01-07] MEDS ORDERED: ATOR40TA52 PO (23:31)
[2025-01-07] MEDS: CARVEDILOL 3.125 MG TAB PO SCH (23:44)
[2025-01-08] VITALS (8 sets, daily range): BP systolic 142–176; BP diastolic 36–60; PULSE 72–89; RESP 16–20; TEMP 98.1–99.2; O2SAT 92–96
[2025-01-08] MEDS: INSULIN NPH Isophane (HUMAN) 1unit/0.01ml Susp(100units/ml) SC SCH (06:46)
[2025-01-08 07:20] LABS: Anion Gap 4 (5-15); Carbon Dioxide 27 mmol/L (20-31); Potassium 4.5 mmol/L (3.5-5.1); Sodium 140 mmol/L (136-145)
[2025-01-08 07:21] LABS: Calcium 9.3 mg/dL (8.7-10.4)
[2025-01-08 07:26] LABS: BUN/Creatinine Ratio 11.3 (10.0-20.0); Blood Urea Nitrogen 12 mg/dL (9-23); Magnesium 1.9 mg/dL (1.6-2.6)
[2025-01-08 07:29] LABS: Chloride 109 mmol/L (98-107); Glucose 267 mg/dL (74-106)
[2025-01-08 07:43] LABS: Basophils # (auto) 0 10 ^3/uL (0-0.2); Basophils % (auto) 0.7 % (0.0-2.0); Eosinophils # (auto) 0.1 10 ^3/uL (0-0.8); Eosinophils % (auto) 2.2 % (0.0-7.0); Hematocrit 33.9 % (36.0-46.0); Hemoglobin 11.5 g/dL (12.2-16.2); Lymphocytes # (auto) 1.8 10 ^3/uL (0.4-5.4); Lymphocytes % (auto) 30.2 % (10.0-50.0); Mean Corpuscular Hemoglobin 30.1 pg (28.0-32.0); Mean Corpuscular Volume 88.5 fL (80.0-100.0); Monocytes # (auto) 0.5 10 ^3/uL (0-1.3); Monocytes % (auto) 7.7 % (0.0-12.0); Neutrophils # (auto) 3.6 10 ^3/uL (1.6-8.6); Neutrophils % (auto) 59.2 % (37.0-80.0); Nucleated Red Blood Cells % 0.1 %; Platelet Count (auto) 272 10^3/uL (140-450); Red Blood Cells 3.83 10^6/uL (4.0-5.20); Red Cell Distribution Width 13.4 % (11.8-14.3)
[2025-01-08] MEDS: SPIRONOLACTONE 25 MG TAB PO SCH (08:56)
[2025-01-08] MEDS ORDERED: CARV-214 PO (14:09)
[2025-01-08] MEDS ORDERED: SPIR25TA PO (14:09)
--- NOTE | 2025-01-08 16:11 | DVHPN2 ---
Subjective in bed resting Changes from previous H/P or p: No Changes Eyes: No Pain, No Vision change, No Conjunctivae inflammation, No Eyelid inflammation, No Other, No Redness ENT: No Ear pain, No Ear discharge, No Nose pain, No Nose discharge, No Nose congestion, No Mouth pain, No Mouth swelling, No Throat pain, No Throat swelling, No Other Cardiovascular: Chest Pain (Sided chest pain in the last review of the right side below the right breast.); No Palpitations, No Orthopnea, No Paroxysmal Noc. Dyspnea, No Edema, No Lt Headedness, No Other Respiratory: No Cough, No Dry, No Shortness of breath, No SOB with excertion, No Wheezing, No Hemoptysis, No Pleuritic Pain, No Sputum, No Other Gastrointestinal: Nausea; No Vomiting, No Abdominal Pain, No Diarrhea, No Constipation, No Melena, No Hematochezia, No Other Genitourinary: No Dysuria, No Frequency, No Incontinence, No Hematuria, No Retention, No Other Musculoskeletal: No other, No neck pain, No shoulder pain, No arm pain, No back pain, No hand pain, No leg pain, No foot pain Skin: No Rash, No Lesions, No Jaundice, No Bruising, No Other Objective Vitals Vital Signs Date Time Temp Pulse Resp B/P (MAP) Pulse Ox O2 Delivery O2 Flow Rate FiO2 01/08/25 15:47 98.1 73 20 93 01/08/25 14:31 176/44 01/08/25 08:00 Room Air* 0 21 Intake/Output Intake and Output 01/08/25 07:00 Intake Total 1130 ml Output Total 3 ml Balance 1127 ml Intake Oral 980 ml IV Total 150 ml Output Urine Total 3 ml # Bowel Movements 1 General Appearance: Alert Lungs: Clear to auscultation Cardiovascular: Regular rate, Normal S1, Normal S2 Medications Current Medications Medications Dose Ordered Sig/Kaveh Route Start Time Stop Time Status Last Admin Dose Admin Enoxaparin Sodium 40 mg DAILY SC 01/07/25 10:00 01/08/25 08:56 40 MG Lisinopril 40 mg DAILY PO 01/07/25 10:00 01/08/25 08:57 40 MG Atorvastatin Calcium 40 mg DAILY PO 01/07/25 10:00 01/08/25 08:56 40 MG Aspirin 81 mg DAILY PO 01/07/25 10:00 01/08/25 08:56 81 MG Insulin Human NPH 30 units QAM MT 01/08/25 07:00 Diagnostic Test (Pha) 1 strip ACHS 01/07/25 17:00 01/08/25 11:17 1 STRIP Insulin Human Regular HS SC 01/07/25 22:00 01/07/25 22:00 10 UNITS Insulin Human Regular AC SC 01/07/25 17:00 01/08/25 11:58 9 UNITS Dextrose 50 ml UD PRN IV 01/07/25 12:30 Hydralazine HCl 10 mg Q6HP PRN IV 01/07/25 15:15 01/08/25 14:31 10 MG Spironolactone 25 mg DAILY PO 01/08/25 10:00 01/08/25 08:56 25 MG Carvedilol 6.25 mg Q12HR PO 01/07/25 22:00 01/08/25 08:57 6.25 MG Laboratory Results Laboratory Tests 01/08/25 06:56 Chemistry Test 01/08/25 06:56 Calcium Level 9.3 mg/dL (8.7-10.4) Magnesium Level 1.9 mg/dL (1.6-2.6) Phosphorus Level 4.0 mg/dL (2.4-5.1) Urinalysis Test 01/07/25 04:40 Urine Color Light-yellow (Yellow) Urine Clarity Clear (Clear) Urine pH 5.5 (5.0-9.0) Urine Specific [place] 1.008 (1.001-1.035) Urine Protein 2+ (Negative) H Urine Ketones Negative (Negative) Urine Blood Negative /uL (Negative) Urine Nitrite Negative (Negative) Urine Bilirubin Negative (Negative) Urine Urobilinogen Normal mg/dL (Negative) Urine Leukocyte Esterase Negative /uL (Negative) Urine RBC None seen /hpf (0 - 4) Urine Microscopic WBC 3 /HPF (0-5) Urine Squamous Epithelial Cells Few /hpf (<5) Urine Bacteria Few /hpf (None Seen) H Urine Glucose Normal mg/dL (Normal) Microbiology Microbiology Date/Time Source Procedure Growth Status 01/06/25 15:45 Blood Blood Culture - Preliminary NO GROWTH AFTER 48 HOURS OF INCUBATION. Resulted Assessment/Plan Assessment/Plan 70 yo F with CVA IDDM admitted for syncope and fall. Per daughter bedside, patient was seen before with same issues, had episodes of hypoglycemia in the past. on insulin regular and NPH. assessment and plan IDDM with hypo and hyperglycemia syncope 2/2 above? rule out cardiac typ2 [place] demand ischemia RBBB hand pain s/p fall hypertension hld old CVA dementia likely vascular Continue insulin toradol tylenol resume home meds per cardiology needs stress test and pending Plan discussed with: Patient Date of Service: Jan 08, 2025 Billing Provider: TORSTEN RAHMAN MD Common Visit Codes: [id number] INP/OBS CARE(HIGH) TORSTEN RAHMAN MD Jan 08, 2025 16:11
[2025-01-09] VITALS (9 sets, daily range): BP systolic 132–193; BP diastolic 40–78; PULSE 75–88; RESP 15–18; TEMP 97.7–98.4; O2SAT 93–97
[2025-01-09] MEDS: INSULIN LANTUS (GLARGINE) 1 /0.01ml (100units/ml) SC SCH (16:59)
--- NOTE | 2025-01-09 20:21 | DVHPN2 ---
Subjective in bed resting Changes from previous H/P or p: No Changes Eyes: No Pain, No Vision change, No Conjunctivae inflammation, No Eyelid inflammation, No Other, No Redness ENT: No Ear pain, No Ear discharge, No Nose pain, No Nose discharge, No Nose congestion, No Mouth pain, No Mouth swelling, No Throat pain, No Throat swelling, No Other Cardiovascular: Chest Pain (Sided chest pain in the last review of the right side below the right breast.); No Palpitations, No Orthopnea, No Paroxysmal Noc. Dyspnea, No Edema, No Lt Headedness, No Other Respiratory: No Cough, No Dry, No Shortness of breath, No SOB with excertion, No Wheezing, No Hemoptysis, No Pleuritic Pain, No Sputum, No Other Gastrointestinal: Nausea; No Vomiting, No Abdominal Pain, No Diarrhea, No Constipation, No Melena, No Hematochezia, No Other Genitourinary: No Dysuria, No Frequency, No Incontinence, No Hematuria, No Retention, No Other Musculoskeletal: No other, No neck pain, No shoulder pain, No arm pain, No back pain, No hand pain, No leg pain, No foot pain Skin: No Rash, No Lesions, No Jaundice, No Bruising, No Other Objective Vitals Vital Signs Date Time Temp Pulse Resp B/P (MAP) Pulse Ox O2 Delivery O2 Flow Rate FiO2 01/09/25 17:50 78 132/41 (71) 01/09/25 17:00 98.3 15 97 98.3 01/09/25 08:00 Room Air* 0 21 Intake/Output Intake and Output 01/09/25 07:00 Intake Total 4520 ml Balance 4520 ml Intake Oral 4520 ml # Voids 7 General Appearance: Alert Lungs: Clear to auscultation Cardiovascular: Regular rate, Normal S1, Normal S2 Medications Current Medications Medications Dose Ordered Sig/Kaveh Route Start Time Stop Time Status Last Admin Dose Admin Enoxaparin Sodium 40 mg DAILY SC 01/07/25 10:00 01/09/25 10:00 40 MG Lisinopril 40 mg DAILY PO 01/07/25 10:00 01/09/25 09:58 40 MG Atorvastatin Calcium 40 mg DAILY PO 01/07/25 10:00 01/09/25 09:57 40 MG Aspirin 81 mg DAILY PO 01/07/25 10:00 01/09/25 09:57 81 MG Diagnostic Test (Pha) 1 strip ACHS 01/07/25 17:00 01/09/25 16:48 1 STRIP Insulin Human Regular HS SC 01/07/25 22:00 01/08/25 21:28 10 UNITS Insulin Human Regular AC SC 01/07/25 17:00 01/09/25 17:00 9 UNITS Dextrose 50 ml UD PRN IV 01/07/25 12:30 Hydralazine HCl 10 mg Q6HP PRN IV 01/07/25 15:15 01/09/25 17:24 10 MG Spironolactone 25 mg DAILY PO 01/08/25 10:00 01/09/25 10:03 25 MG Carvedilol 6.25 mg Q12HR PO 01/07/25 22:00 01/09/25 09:58 6.25 MG Insulin Glargine 15 units QAM SC 01/10/25 07:00 Insulin Glargine 15 units DAILY@DINNER [place] 01/09/25 17:30 01/09/25 16:59 15 UNITS Laboratory Results Laboratory Tests 01/08/25 06:56 Urinalysis Test 01/07/25 04:40 Urine Color Light-yellow (Yellow) Urine Clarity Clear (Clear) Urine pH 5.5 (5.0-9.0) Urine Specific [place] 1.008 (1.001-1.035) Urine Protein 2+ (Negative) H Urine Ketones Negative (Negative) Urine Blood Negative /uL (Negative) Urine Nitrite Negative (Negative) Urine Bilirubin Negative (Negative) Urine Urobilinogen Normal mg/dL (Negative) Urine Leukocyte Esterase Negative /uL (Negative) Urine RBC None seen /hpf (0 - 4) Urine Microscopic WBC 3 /HPF (0-5) Urine Squamous Epithelial Cells Few /hpf (<5) Urine Bacteria Few /hpf (None Seen) H Urine Glucose Normal mg/dL (Normal) Microbiology Microbiology Date/Time Source Procedure Growth Status 01/06/25 15:45 Blood Blood Culture - Preliminary NO GROWTH AFTER 72 HOURS OF INCUBATION. Resulted Assessment/Plan Assessment/Plan 70 yo F with CVA IDDM admitted for syncope and fall. Per daughter bedside, patient was seen before with same issues, had episodes of hypoglycemia in the past. on insulin regular and NPH. assessment and plan IDDM with hypo and hyperglycemia syncope 2/2 above? rule out cardiac typ2 [place] demand ischemia RBBB hand pain s/p fall hypertension hld old CVA dementia likely vascular Continue insulin toradol tylenol resume home meds per cardiology needs stress test and pending Dispo: DC tomorrow if stress test is negative Plan discussed with: Patient My Orders Orders - TORSTEN RAHMAN MD Procedure Category Date Status Time Insulin Lantus PHA 01/10/25 In Process (Glargine) (Lantus) 07:00 Insulin Lantus PHA 01/09/25 In Process (Glargine) (Lantus) 17:30 Date of Service: Jan 09, 2025 Billing Provider: TORSTEN RAHMAN MD Common Visit Codes: [id number] INP/OBS CARE(HIGH) TORSTEN RAHMAN MD Jan 09, 2025 20:21
[2025-01-09] MEDS ORDERED: DEXTROSE (50%) 50ML SYRG IV PRN (23:15)
[2025-01-10] MEDS: InsuLIN REG 1unit/0.01ml Soln (100units/ml) SC SCH (00:12)
[2025-01-10] MEDS: ACCU-CHEK COMFORT CURVE STRIP VI SCH (00:13)
[2025-01-10 01:00] VITALS: BP 133/31; PULSE 75; RESP 17; TEMP 98.2; O2SAT 93
[2025-01-10] MEDS: INSULIN LANTUS (GLARGINE) 1 /0.01ml (100units/ml) SC SCH (06:20)
[2025-01-10 08:30] VITALS: PULSE 87; O2SAT 93
[2025-01-10 09:00] VITALS: BP 151/66; PULSE 84; RESP 18; TEMP 97.8; O2SAT 96
[2025-01-10] MEDS: REGADENOSON 0.4 MG/5 ML SYRG IV ONE ×2 (11:03→11:10)
--- NOTE | 2025-01-10 14:30 | DVHPN2 ---
Assessment/Plan Assessment/Plan Progress note 70 yo F with CVA IDDM admitted for syncope and fall. Per daughter bedside, patient was seen before with same issues, had episodes of hypoglycemia in the past. on insulin regular and NPH. seen today during rounds, asymptomatic pending MPI Progress note Alert oriented x2 Clear breath sounds s1 s2 rrr no murmur abdomen soft nontender no le edema labs ekg imaging reviewed assessment and plan IDDM with hypo and hyperglycemia syncope 2/2 above? rule out cardiac typ2 DC demand ischemia RBBB hand pain s/p fall hypertension hld old CVA dementia likely vascular on lantus BID ISS today d10 if persistently hypoglycemic toradol tylenol resume jaky emeds penading MPI result diet cardiac dvt ppx lovenox Plan discussed with: Patient Date of Service: Jan 10, 2025 Billing Provider: PRIMITIVO OSEGUERA MD Common Visit Codes: [id number] INP/OBS CARE(MOD) PRIMITIVO OSEGUERA MD Jan 10, 2025 14:30
--- NOTE | 2025-01-10 15:05 | DVHSR ---
APPROVED REPORT Exam: Nuclear Stress Test BMI: 0 Stress Test Details HR Max Heart Rate (APMHR): 148.395872 bpm Target HR (85% APMHR): 125.721194 bpm BP ECG Stress ECG Conclusion lvef3 38% moderate LV dysfunction TID is visually noted on stress imaging, clinical correlate for possible multivessel cad mild basal inferior wall fixed defect noted NM EXAM: Myocardial Perfusion REST/STRESS Imaging Protocol: Rest Tc-99m/Stress Tc-99m 1 day Resting Data Rest SPECT myocardial perfusion imaging was performed in supine position 60 minutes following the int ravenous injection of 11.3 mCi of Tc-99m Sestamibi. Time of rest injection: 0910 Time of rest imagin Administration Route: IV Administration Site: Left Arm Pharmacologic Stress Pharmacologic stress test was performed by injecting Regadenoson 0.4 mg IV push followed by the intra venous injection of 30 mCi of Tc-99m Sestamibi. Time of stress injection: 1103 Time of stress imagin Administration Route: IV Administration Site: Left Arm Gated Stress SPECT was performed 60 minutes after stress injection. The images were gated to evaluate regional wall motion and calculate left ventricular ejection fracti on. Stress only was performed in the Supine position. Nuclear Conclusion lvef3 38% moderate LV dysfunction TID is visually noted on stress imaging, clinical correlate for possible multivessel cad mild basal inferior wall fixed defect noted
--- NOTE | 2025-01-10 16:32 | DVHPN2 ---
Consult Progress Note Date Seen: Jan 10, 2025 Subjective Review of Systems: CVS:Normal, RESPIRATORY:Normal, NEURO:Normal Objective vital signs Vital Sign Date Time Temp Pulse Resp B/P (MAP) Pulse Ox O2 Delivery O2 Flow Rate FiO2 01/10/25 14:55 76 161/50 01/10/25 09:00 97.8 18 96 97.8 01/09/25 20:00 Room Air* 0 21 Total Intake and Output 01/09/25 01/09/25 01/10/25 15:00 23:00 07:00 Intake Total 1040 ml 1725 ml Balance 1040 ml 1725 ml medications Current Medications Medications Dose Ordered Sig/Kaveh Route Start Time Stop Time Status Last Admin Dose Admin Enoxaparin Sodium 40 mg DAILY SC 01/07/25 10:00 01/10/25 14:57 40 MG Lisinopril 40 mg DAILY PO 01/07/25 10:00 01/10/25 14:53 40 MG Atorvastatin Calcium 40 mg DAILY PO 01/07/25 10:00 01/10/25 14:56 40 MG Aspirin 81 mg DAILY PO 01/07/25 10:00 01/10/25 14:55 81 MG Hydralazine HCl 10 mg Q6HP PRN IV 01/07/25 15:15 01/09/25 17:24 10 MG Spironolactone 25 mg DAILY PO 01/08/25 10:00 01/10/25 14:51 25 MG Carvedilol 6.25 mg Q12HR PO 01/07/25 22:00 01/10/25 14:55 6.25 MG Insulin Glargine 15 units QAM SC 01/10/25 07:00 01/10/25 06:20 15 UNITS Insulin Glargine 15 units DAILY@DINNER SC 01/09/25 17:30 01/09/25 16:59 15 UNITS Diagnostic Test (Pha) 1 strip IQ4HR 01/10/25 00:00 01/10/25 15:00 1 STRIP Insulin Human Regular IQ4HR SC 01/10/25 00:00 01/10/25 15:03 12 UNITS Dextrose 50 ml UD PRN IV 01/09/25 23:15 Examination: LUNGS:Normal, CVS:Normal, NEURO:Normal laboratory and microbiology Laboratory Tests 01/08/25 06:56 Test 01/08/25 06:56 Range/Units Serum Glucose 267 H 74-106 mg/dL Problem List/Assessment/Plan Problem List/Assessment/Plan Hypertensive urgency NSTEMI with abnormal nuclear scan Questionable syncopal episode Dyslipidemia Mild mitral stenosis Type 2 diabetes mellitus with hypoglycemia History of CVA without deficit ?Dementia Obesity Plan/Recommendation (Dr. Steiner) * Transthoracic echocardiogram reveals EF 55-60% * Nuclear stress test: TID is visually noted on stress imaging, clinical correlate for possible multivessel CAD. Mild basal inferior wall fixed defect noted * Aggressive BP control: ACEI, mineralcorticoid, and Coreg * Up-Titrate as needed for a target SBP <140 mmHg * Single-antiplatelet therapy and lipid-lowering agent * Close Cardiac surveillance * BMP in the a.m. Scheduled for a left cardiac catheterization and coronary angiogram with Dr. Steiner on 01/12/2025. All risks and benefits of the procedure were discussed in detail and agrees to proceed. All questions answered. Thank you for allowing us to care for this patient. Please call with any questions or concerns. This medical document was created using an electronic medical record system with voice recognition software and computerized dictation system. Although this document has been carefully reviewed, there might still be some phonetic and typographical errors. Occasional wrong-word or ``sound-alike substitutions may have occurred due to the inherent limitations of voice recognition software. These areas are purely typographical due to imperfections of the software programs and do not reflect any compromise in the patient's medical care. Please read the chart carefully and recognize, using context, where these substitutions have occurred. Plan discussed with: Patient, Other Dietary Evaluation Review Comments: 1) Initiate cardiac restriction to 45g CCHO diet order 2) Refer to outpatient RD/CDCES for diabetes education 3) Continue to promote optimal PO intake 4) F/u with cardiology Expected Outcomes/Goals: 1) labs to improve 2) f/u in 5 days Date of Service: Jan 10, 2025 Billing Provider: RITA QUEZADA Cardiology Common Codes: [id number] HOSP CARE(High RITA QUEZADA Jan 10, 2025 16:32
[2025-01-10 17:00] VITALS: BP 163/76; PULSE 77; RESP 16; TEMP 98.4; O2SAT 97
[2025-01-10 20:00] VITALS: PULSE 77
[2025-01-10 21:00] VITALS: BP 142/44; PULSE 76; RESP 21; TEMP 92.6; O2SAT 91
[2025-01-10] MEDS: CARVEDILOL 3.125 MG TAB PO SCH (21:40)
[2025-01-11 01:00] VITALS: BP 145/49; PULSE 73; RESP 21; TEMP 97.7; O2SAT 94
[2025-01-11 05:00] VITALS: BP 154/50; PULSE 68; RESP 20; TEMP 97.5; O2SAT 90
[2025-01-11 07:43] LABS: Anion Gap 9 (5-15); Carbon Dioxide 24 mmol/L (20-31); Chloride 103 mmol/L (98-107); Potassium 4.3 mmol/L (3.5-5.1)
[2025-01-11 07:44] LABS: Calcium 9.1 mg/dL (8.7-10.4)
[2025-01-11 07:49] LABS: BUN/Creatinine Ratio 18.7 (10.0-20.0); Blood Urea Nitrogen 20 mg/dL (9-23)
[2025-01-11 07:51] LABS: Sodium 136 mmol/L (136-145)
[2025-01-11 07:52] LABS: Glucose 152 mg/dL (74-106)
[2025-01-11 08:00] VITALS: PULSE 68
[2025-01-11 08:38] VITALS: BP 121/43; PULSE 68; RESP 14; TEMP 98.3; O2SAT 95
--- NOTE | 2025-01-11 12:20 | DVHPN2 ---
Consult Progress Note Date Seen: Jan 11, 2025 Subjective Review of Systems: CVS:Normal, RESPIRATORY:Normal, NEURO:Normal Objective vital signs Vital Sign Date Time Temp Pulse Resp B/P (MAP) Pulse Ox O2 Delivery O2 Flow Rate FiO2 01/11/25 08:38 98.3 68 14 121/43 (69) 95 98.3 01/10/25 20:00 Room Air* 0 21 Total Intake and Output 01/10/25 01/10/25 01/11/25 14:59 22:59 06:59 Intake Total 1000 ml 800 ml Balance 1000 ml 800 ml medications Current Medications Medications Dose Ordered Sig/Kaveh Route Start Time Stop Time Status Last Admin Dose Admin Enoxaparin Sodium 40 mg DAILY SC 01/07/25 10:00 01/11/25 08:31 40 MG Lisinopril 40 mg DAILY PO 01/07/25 10:00 01/11/25 08:30 40 MG Atorvastatin Calcium 40 mg DAILY PO 01/07/25 10:00 01/11/25 08:30 40 MG Aspirin 81 mg DAILY PO 01/07/25 10:00 01/11/25 08:30 81 MG Hydralazine HCl 10 mg Q6HP PRN IV 01/07/25 15:15 01/10/25 17:53 10 MG Spironolactone 25 mg DAILY PO 01/08/25 10:00 01/11/25 08:28 25 MG Insulin Glargine 15 units QAM SC 01/10/25 07:00 01/11/25 06:03 15 UNITS Insulin Glargine 15 units DAILY@DINNER SC 01/09/25 17:30 01/10/25 17:30 15 UNITS Diagnostic Test (Pha) 1 strip IQ4HR 01/10/25 00:00 01/11/25 11:45 1 STRIP Insulin Human Regular IQ4HR SC 01/10/25 00:00 01/11/25 11:49 12 UNITS Dextrose 50 ml UD PRN IV 01/09/25 23:15 Carvedilol 12.5 mg Q12HR PO 01/10/25 22:00 01/11/25 08:29 12.5 MG Examination: LUNGS:Normal, CVS:Normal, NEURO:Normal laboratory and microbiology Laboratory Tests 01/11/25 05:56 01/08/25 06:56 Test 01/11/25 05:56 Range/Units Serum Glucose 152 H 74-106 mg/dL Problem List/Assessment/Plan Problem List/Assessment/Plan Hypertensive urgency NSTEMI with abnormal nuclear scan Questionable syncopal episode Dyslipidemia Mild mitral stenosis Type 2 diabetes mellitus with hypoglycemia History of CVA without deficit ?Dementia Obesity Plan/Recommendation (Dr. Steiner) * Transthoracic echocardiogram reveals EF 55-60% * Nuclear stress test: TID is visually noted on stress imaging, clinical correlate for possible multivessel CAD. Mild basal inferior wall fixed defect noted * Aggressive BP control: ACEI, mineralcorticoid, and Coreg * Up-Titrate as needed for a target SBP <140 mmHg * Single-antiplatelet therapy and lipid-lowering agent * Close Cardiac surveillance Scheduled for a left cardiac catheterization and coronary angiogram with Dr. Steiner on 01/12/2025. Thank you for allowing us to care for this patient. Please call with any questions or concerns. This medical document was created using an electronic medical record system with voice recognition software and computerized dictation system. Although this document has been carefully reviewed, there might still be some phonetic and typographical errors. Occasional wrong-word or ``sound-alike substitutions may have occurred due to the inherent limitations of voice recognition software. These areas are purely typographical due to imperfections of the software programs and do not reflect any compromise in the patient's medical care. Please read the chart carefully and recognize, using context, where these substitutions have occurred. Plan discussed with: Patient, Other Dietary Evaluation Review Comments: 1) Initiate cardiac restriction to 45g CCHO diet order 2) Refer to outpatient RD/CD[facility] for diabetes education 3) Continue to promote optimal PO intake 4) F/u with cardiology Expected Outcomes/Goals: 1) labs to improve 2) f/u in 5 days Date of Service: Jan 11, 2025 Billing Provider: RITA QUEZADA Cardiology Common Codes: [id number] HOSP CARE(High RITA QUEZADA Jan 11, 2025 12:20
[2025-01-11 13:21] VITALS: BP 164/53; PULSE 65; RESP 16; TEMP 97.6; O2SAT 95
--- NOTE | 2025-01-11 14:13 | DVHPN2 ---
Assessment/Plan Assessment/Plan Progress note 70 yo F with CVA IDDM admitted for syncope and fall. Per daughter bedside, patient was seen before with same issues, had episodes of hypoglycemia in the past. on insulin regular and NPH. seen today during rounds, asymptomatic, MPI positive for ischemia, plan for cath. Progress note Alert oriented x2 Clear breath sounds s1 s2 rrr no murmur abdomen soft nontender no le edema labs ekg imaging reviewed assessment and plan IDDM with hypo and hyperglycemia syncope 2/2 above? rule out cardiac typ2 WI demand ischemia RBBB hand pain s/p fall hypertension hld old CVA dementia likely vascular on lantus BID ISS today d10 if persistently hypoglycemic toradol tylenol resume jaky emeds plan for cath tomorrow, NPO midnight asa lipitor diet cardiac dvt ppx lovenox Plan discussed with: Patient My Orders Orders - PRIMITIVO OSEGUERA MD Procedure Category Date Status Time Consistent DIET 01/10/25 Transmitted Carb(Ccho)Diabetes Dinner * Ict Sales Assistant CONS 01/11/25 Verified Consult Date of Service: Jan 11, 2025 Billing Provider: PRIMITIVO OSEGUERA MD Common Visit Codes: [id number] INP/OBS CARE(HIGH) PRIMITIVO OSEGUERA MD Jan 11, 2025 14:13
[2025-01-11 16:47] VITALS: BP 144/46; PULSE 71; RESP 15; TEMP 98.5; O2SAT 96
[2025-01-11] MEDS ORDERED: CARVEDILOL 3.125 MG TAB PO SCH (22:00)
[2025-01-12 01:00] VITALS: BP 124/83; PULSE 74; RESP 17; TEMP 97.6; O2SAT 96
== END 2025-01-11 19:59 | disposition short-term general hospital (02) | DRG 637 ==
LOC: EDBD 13:51 → ER 13:51 → OVERFLOW 21:25 → TELE-WESTW 01-07 22:01
PROVIDERS: ADMIT Student in an Organized Health Care Education/Training Program; ATTEND Student in an Organized Health Care Education/Training Program
DX: E11.649 Type 2 diabetes mellitus with hypoglycemia without coma (principal); I21.A1 Myocardial infarction type 2; E11.65 Type 2 diabetes mellitus with hyperglycemia; F01.50 Vascular dementia, unspecified severity, without behavioral disturbance, psychotic disturbance, mood disturbance, and anxiety; I16.0 Hypertensive urgency; I45.10 Unspecified right bundle-branch block; I34.2 Nonrheumatic mitral (valve) stenosis; F17.210 Nicotine dependence, cigarettes, uncomplicated; I10 Essential (primary) hypertension; E78.5 Hyperlipidemia, unspecified; E66.9 Obesity, unspecified; Z88.2 Allergy status to sulfonamides; Z88.8 Allergy status to other drugs, medicaments and biological substances; Z79.899 Other long term (current) drug therapy; Z83.3 Family history of diabetes mellitus; Z86.73 Personal history of transient ischemic attack (TIA), and cerebral infarction without residual deficits; Z90.49 Acquired absence of other specified parts of digestive tract; Z79.4 Long term (current) use of insulin; Z68.32 Body mass index [BMI] 32.0-32.9, adult; Z79.82 Long term (current) use of aspirin
CPT/HCPCS: 36415; 70450; 71045; 73130; 78452; 80048; 80061; 80076; 80307; 81001; 82962; 83036; 83605; 83735; 83880; 84100; 84484; 85025; 87040; 93005; 93017; 93306; 96365; 96375; G0378; J1815; J2543; J3490

== ENCOUNTER 2025-03-03 13:09 | Emergency (ER) | payer OTHER ==
[~2025-03-03] VITALS: Ht 165.1 cm; Wt 77.1 kg
[~2025-03-03 13:09] MED LIST changes: +ANAS1TAB7 PO; +ASPI1TAB20 PO; +ATOR40TA52 PO; +CARV-214 PO; -D5W/SOD CHL 0.45% 1,000 ML IV ONE; -DEXTROSE (50%) 50ML SYRG IV ONE; -DEXTROSE 10% 1,000 ML IV ONE; +INSREG3 SC; +INSUINJ2 SC; +LISI40TA16 PO; +SPIR25TA PO; -cefTRIAXone 1GM/50ML D5W 50 ML IV ONE
--- NOTE | 2025-03-03 13:33 | ED.PDOC ---
History of Present Illness HPI Comments 70 y/o F, BIBA, with PMHx of HTN and DM presents to the ED for CC of s/p syncopal episode. EMS reports patient is coming from home where she had a witnessed syncopal episode today (03/03/25) by granddaughter lasting 4min; followed by nausea, vomiting, and diarrhea. Upon arrival to scene, EMS reports patient was pale, cold, and visibly diaphoretic. Granddaughter endorses, that patient has had x5 syncopal episodes in the past [id number] and has always been departed with unremarkable results. Patient denies head injury, cervical injury, headache, open wounds, or shortness of breath. No other symptoms or modifying factors present at this time. Chief Complaint: Syncope Time Seen by MD: 13:00 Primary Care Provider: UNKNOWN Reviewed Notes: Nurses Notes, Coverage Specialist Rn Notes, Medications, Allergies Allergies: Coded Allergies: Sulfa Antibiotics (Verified Allergy, Unknown, 03/03/25) Sulfamethoxazole w/Trimethoprim (Verified Allergy, Unknown, 01/09/20) Home Meds Active Scripts Spironolactone (Aldactone) 25 Mg Tab, 25 MG PO DAILY for 90 Days, #90 TAB Prov:TORSTEN RAHMAN MD 01/08/25 Carvedilol (COREG) 3.125 Mg Tab, 6.25 MG PO Q12HR for 90 Days, #360 TAB Prov:TORSTEN RAHMAN MD 01/08/25 Reported Medications Aspirin (Aspir-81) 81 Mg Tab, 81 MG PO DAILY, TAB 01/07/25 Anastrozole (Anastrozole) 1 Mg Tab, 1 MG PO DAILY 01/07/25 Atorvastatin Calcium (ATORVASTATIN CALCIUM) 40 Mg Tab, 40 MG PO DAILY 01/07/25 Lisinopril (Lisinopril) 40 Mg Tab, 40 MG PO QAM 01/07/25 Insulin NPH (Human) (Isophane) (Humulin N) 100 Unit/Ml Inj, 40 UNIT SC QAM 01/07/25 Insulin Regular (Human) (Humulin R) 100 Unit/Ml Inj, 15 UNIT SC BID TAKE BEFORE BREAKFAST AND DINNER. 01/07/25 Information Source: Patient, Relative (GrandChild), Emergency Med Personnel Mode of Arrival: EMS Severity: Moderate Timing: Hours Duration: Since onset Prehospital treatment: None Past Medical History PAST MEDICAL HISTORY: DM, HTN Surgical History: Denies all surgeries ENTRY LEVEL DRAFTER History: Denies all ENTRY LEVEL DRAFTER Hx Family History Family History: Family hx of DM Social History Smoker: Cigarettes, Less Than 1 Pack/Day Alcohol: Denies ETOH Use Drugs: Denies Drug Use Lives In: Home Constitutional: reports: sweats; denies: chills, diaphoresis, fatigue, fever, malaise, weakness, others EENTM: denies: blurred vision, double vision, ear bleeding, ear discharge, ear drainage, ear pain, ear ringing, eye pain, eye redness, hearing loss, mouth pain, mouth swelling, nasal discharge, nose bleeding, nose congestion, nose pain, photophobia, tearing, throat pain, throat swelling, voice changes, others Respiratory: denies: cough, hemoptysis, orthopnea, SOB at rest, shortness of breath, SOB with excertion, stridor, wheezing, others Cardiovascular: denies: chest pain, dizzy spells, diaphoresis, Dyspnea on exertion, edema, irregular heart beat, left arm pain, lightheadedness, palpitations, PND, syncope, others Gastrointestinal: reports: diarrhea, nausea, vomiting; denies: abdomen distended, abdominal pain, blood streaked bowels, constipated, dysphagia, difficulty swallowing, hematemesis, melena, poor appetite, poor fluid intake, rectal bleeding, rectal pain, others Genitourinary: denies: abnormal vagina bleeding, burning, dyspareunia, dysuria, flank pain, frequency, hematuria, incontinence, pain, , vagina discharge, urgency, others Neurological: denies: dizziness, fainting, headache, left sided numbness, left sided weakness, numbness, paresthesia, pre-existing deficit, right sided numbness, right sided weakness, seizure, speech problems, tingling, tremors, weakness, others Musculoskeletal: denies: back pain, gout, joint pain, joint swelling, muscle pain, muscle stiffness, neck pain, others Integumetry: denies: bruises, change in color, change in hair/nails, dryness, laceration, lesions, lumps, rash, wounds, others Allergic/Immunocompromised: denies: Difficulty Healing, Frequent Infections, Hives, Itching, others Hematologic/Lymphatic: denies: anemia, blood clots, easy bleeding, easy bruising, swollen glands, others Endocrine: denies: excessive hunger, excessive sweating, excessive thirst, excessive urination, flushing, intolerance to cold, intolerance to heat, unexplained weight gain, unexplained weight loss, others Psychiatric: denies: anxiety, bipolar disorder, depression, hopeless, panic disorder, schizophrenia, sleepless, suicidal, others All Other Systems: Reviewed and Negative Physical Exam General Appearance: Moderate Distress, Obese HEENT: Pale Conjuntivae (L), Pale Conjuntivae (R), Pharynx Normal, TMs Normal Neck: Full Range of Motion, Non-Tender, Normal, Normal Inspection Respiratory: Chest Non-Tender, Lungs Clear, No Accessory Muscle Use, No Respiratory Distress, Normal Breath Sounds Cardiovascular: No Edema, No JVD, No Murmur, No Gallop, Normal Peripheral Pulses, Regular Rate/Rhythm Breast Exam: Deferred Gastrointestinal: No Organomegaly, Non Tender, No Pulsatile Mass, Normal Bowel Sounds, Soft Genitalia: Deferred Pelvic: Deferred Rectal: Deferred Extremities: No calf tenderness, Normal capillary refill, Pedal edema Musculoskeletal : Apperance: Normal Neurologic: bereavement coordinator II-XII nml as Tested, Motor Weakness, Normal Affect, No Sensory Deficits, Other (Dementia) Cerebellar Function: Unable to Test Reflexes: Normal Skin: Dry, Pallor, Warm Lymphatic: No Adenopathy Was a procedure done? Was a procedure done?: No EKG EKG : Pulse Rate (adult): 63 [place]: Normal Cardiac Rhythm: NSR Block: RBBB Hypertrophy: LVH ST: Normal Differential Dx Considerations may include: GENERALIZED WEAKNESS, GASTRITIS, VIRAL, BACTERIAL X-Ray, Labs, Meds, VS Vital Signs Date Time Temp Pulse Resp B/P (MAP) Pulse Ox O2 Delivery O2 Flow Rate FiO2 03/03/25 17:01 98.4 63 13 138/41 (73) 92 98.4 03/03/25 15:14 98.0 64 16 159/47 (84) 95 98.0 03/03/25 15:14 Room Air* 0 21 03/03/25 15:04 63 03/03/25 14:05 98.3 62 18 156/59 (91) 94 98.3 03/03/25 13:35 63 03/03/25 13:14 63 Lab Test 03/03/25 17:26 03/03/25 17:01 03/03/25 15:29 03/03/25 14:31 Range/Units Troponin I High Sensitivity Pending 69 *H 81 *H </=34 ng/L POC Glucose 60 L 70-106 mg/dl White Blood Count 9.9 4.4-10.8 10^3/uL Red Blood Count 4.61 4.0-5.20 10^6/uL Hemoglobin 13.8 12.2-16.2 g/dL Hematocrit 40.4 36.0-46.0 % Mean Corpuscular Volume 87.8 80.0-100.0 fL Mean Corpuscular Hemoglobin 29.9 28.0-32.0 pg Mean Corpuscular Hemoglobin Concent 34.1 32.0-36.0 g/dL Red Cell Distribution Width 13.8 11.8-14.3 % Platelet Count 313 140-450 10^3/uL Mean Platelet Volume 9.6 6.9-10.8 fL Neutrophils (%) (Auto) 77.2 37.0-80.0 % Lymphocytes (%) (Auto) 16.4 10.0-50.0 % Monocytes (%) (Auto) 5.1 0.0-12.0 % Eosinophils (%) (Auto) 1.0 0.0-7.0 % Basophils (%) (Auto) 0.3 0.0-2.0 % Neutrophils # (Auto) 7.7 1.6-8.6 10 ^3/uL Lymphocytes # (Auto) 1.6 0.4-5.4 10 ^3/uL Monocytes # (Auto) 0.5 0-1.3 10 ^3/uL Eosinophils # (Auto) 0.1 0-0.8 10 ^3/uL Basophils # (Auto) 0 0-0.2 10 ^3/uL Nucleated Red Blood Cells 0.2 % Sodium Level 145 136-145 mmol/L Potassium Level 4.7 3.5-5.1 mmol/L Chloride Level 109 H 98-107 mmol/L Carbon Dioxide Level 27 20-31 mmol/L Anion Gap 9 5-15 Blood Urea Nitrogen 37 H 9-23 mg/dL Creatinine 1.28 H 0.550-1.02 mg/dL Glomerular Filtration Rate Calc 45 >90 mL/min BUN/Creatinine Ratio 28.9 H 10.0-20.0 Serum Glucose 81 74-106 mg/dL Lactic Acid Level 1.5 0.4-2.0 mmol/L Calcium Level 10.1 8.7-10.4 mg/dL Total Bilirubin 0.3 0.2-1.0 mg/dL Aspartate Amino Transferase (AST) 15 13-40 U/L Alanine Aminotransferase (ALT) 24 7-40 U/L Alkaline Phosphatase 100 46-116 U/L Total Protein 7.1 5.7-8.2 g/dL Albumin 4.2 3.2-4.8 g/dL Current Medications Medications (Trade) Dose Ordered Sig/Kaveh Route Start Time Stop Time Status Last Admin Sodium Chloride 500 ml @ 500 mls/hr Q1H ONCE IVB 03/03/25 13:30 03/03/25 14:29 DC 03/03/25 15:07 CHEST XR: IMPRESSION: No acute disease. HEAD CT W/O CONTRAST: Impression: No evidence of acute intracranial abnormality. If symptoms persist, MRI may be considered for further evaluation. Right basal ganglia chronic lacunar infarct with left occipital parietal encephalomalacia. 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 The patient's CBC is within normal limits The chemistry panel is within normal limits except for BUN of 37 the creatinine of 1.28 We did explain to the family that the patient would have to be admitted to the hospitalist They are a [facility] patient and we did call [facility] for authorization The authorization #[id number] The patient will be transferred to [facility] at this time. We did explain to the family that we feel that the patient should stay but at this time the election is two have the patient transferred. Images Reviewed?: Images reviewed and evaluated by me Time of 1ST Reevaluation: 13:30 Reevaluation 1ST: Unchanged Patient Education/Counseling: Diagnosis, Treatment, Prognosis Family Education/Counseling: Diagnosis, Treatment, Prognosis Departure 1 Departure Time of Disposition: 17:46 Impression: Primary Impression: Episode of syncope Qualified Codes: R55 - Syncope and collapse Additional Impressions: Generalized weakness Elevated troponin Disposition: 51 HOSPICE/MEDICAL FACILITY Condition: Fair Critical Care Note Critical Care Time?: Yes (45 min-critical care time only) Stability Stability form required: Yes Stable for transfer: Intended for transfer (Health plan request transfer), To designated facility Heart Score Heart Score: Heart Score Response (Comments) Value History N/A 0 EKG N/A 0 Age N/A 0 Risk Factors N/A 0 Troponin N/A 0 Total 0 I personally scribed for CARLYLE CHANDLER MD ([email or web address]) on 03/03/25 at 13:33. Electronically submitted by Claudine Acuña ([email or web address]). I personally scribed for CARLYLE CHANDLER MD ([email or web address]) on 03/03/25 at 13:35. Electronically submitted by Claudine Acuña ([email or web address]). I personally scribed for CARLYLE CHANDLER MD ([email or web address]) on 03/03/25 at 14:12. Electronically submitted by Claudine Acuña ([email or web address]). CARLYLE CHANDLER MD March 03, 2025 13:33
--- NOTE | 2025-03-03 13:56 | DVH ---
CHEST RADIOGRAPH Indication: aloc Technique: Single frontal view of the chest was obtained COMPARISON: XY CHEST PORTABLE on DOS: 01/06/25, CHEST PORTABLE on DOS: 10/20/20, CHEST PORTABLE on DOS: 01/09/20 FINDINGS: Lines and Tubes: None Lungs: Clear Pleura: No effusion. No pneumothorax. Cardiomediastinal contours: Unremarkable Bones: Unremarkable IMPRESSION: No acute disease.
--- NOTE | 2025-03-03 13:56 | DVH ---
Procedure: CT HEAD WITHOUT CONTRAST Study Date and Requested Time: 03/03/2025 01:24 PM History: aloc Comparison: CT HEAD WITHOUT CONTRAST on DOS: 01/06/25, HEAD WITHOUT CONTRAST on DOS: 10/20/20, HEAD WIT HOUT CONTRAST on DOS: 01/09/20 Dose: CTDI: 60.21 mGy DLP: 1066.05 mGycm Technique: Multiplanar images obtained through the brain without intravenous contrast. Findings: [id number] frontoparietal predominant brain atrophy. Mild chronic small vessel ischemic changes . Left occipitoparietal encephalomalacia. Right basal ganglia chronic lacunar infarct. No hemorrhages, masses, mass effect, midline shift, herniation or cytotoxic edema following a large v ascular territory. No intra-axial or extra-axial fluid collections. No evidence of hydrocephalus. The basal cisterns are patent. The pituitary gland, sella and parasellar regions are unremarkable. The cerebellar tonsils are in nor mal position. The cerebellum is unremarkable. There is bilateral lens replacement. Otherwise, orbits and globes are unremarkable. Opacification of the partially imaged right maxillary sinus with bony hyperostosis of the right maxillary sinus and p artial opacification of the right anterior ethmoid air cells. The remainder of the paranasal sinuses and mastoids are clear. There are no worrisome calvarial lesions. There is hyperostosis frontalis in terna. Impression: No evidence of acute intracranial abnormality. If symptoms persist, MRI may be considered for further evaluation. Right basal ganglia chronic lacunar infarct with left occipital parietal encephalomalacia. 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
[2025-03-03 14:52] LABS: Basophils # (auto) 0 10 ^3/uL (0-0.2); Basophils % (auto) 0.3 % (0.0-2.0); Eosinophils # (auto) 0.1 10 ^3/uL (0-0.8); Hematocrit 40.4 % (36.0-46.0); Hemoglobin 13.8 g/dL (12.2-16.2); Lymphocytes # (auto) 1.6 10 ^3/uL (0.4-5.4); Lymphocytes % (auto) 16.4 % (10.0-50.0); Mean Corpuscular Hemoglobin 29.9 pg (28.0-32.0); Mean Corpuscular Hgb Conc. 34.1 g/dL (32.0-36.0); Mean Corpuscular Volume 87.8 fL (80.0-100.0); Monocytes # (auto) 0.5 10 ^3/uL (0-1.3); Monocytes % (auto) 5.1 % (0.0-12.0); Neutrophils # (auto) 7.7 10 ^3/uL (1.6-8.6); Neutrophils % (auto) 77.2 % (37.0-80.0); Nucleated Red Blood Cells % 0.2 %; Platelet Count (auto) 313 10^3/uL (140-450); Red Blood Cells 4.61 10^6/uL (4.0-5.20); Red Cell Distribution Width 13.8 % (11.8-14.3); White Blood Cell 9.9 10^3/uL (4.4-10.8)
[2025-03-03] MEDS: SODIUM CHLORIDE 0.9% 500 ML IVB ONE (15:07)
[2025-03-03 15:12] LABS: Alanine Aminotransferase 24 U/L (7-40); Albumin 4.2 g/dL (3.2-4.8); Alkaline Phosphatase 100 U/L (46-116); Anion Gap 9 (5-15); Aspartate Aminotransferase 15 U/L (13-40); BUN/Creatinine Ratio 28.9 (10.0-20.0); Calcium 10.1 mg/dL (8.7-10.4); Carbon Dioxide 27 mmol/L (20-31); Glucose 81 mg/dL (74-106); Potassium 4.7 mmol/L (3.5-5.1); Total Protein 7.1 g/dL (5.7-8.2)
[2025-03-03 15:17] LABS: Bilirubin, Total 0.3 mg/dL (0.2-1.0); Blood Urea Nitrogen 37 mg/dL (9-23); Chloride 109 mmol/L (98-107); Sodium 145 mmol/L (136-145)
--- NOTE | 2025-03-03 18:27 | ECG ---
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
[2025-03-03 19:13] LABS: Urine Amorphous Crystal FEW /hpf (None Seen); Urine Bacteria FEW /hpf (None Seen); Urine Blood Negative /uL (Negative); Urine Clarity Turbid (Clear); Urine Color Light-Yellow (Yellow); Urine Hyaline Cast FEW /lpf (0 - 2); Urine Protein, UAD 1+ (Negative); Urine Specific Gravity 1.011 (1.001-1.035); Urine Squamous Epithelial Cell FEW /hpf (<5); Urine Urobilinogen Normal (Negative); Urine WBC 9 /HPF (0-5); Urine pH 5.5 (5.0-9.0)
[2025-03-03 22:21] VITALS: BP 173/47; PULSE 70; RESP 16; TEMP 98; O2SAT 95
== END 2025-03-03 22:30 | disposition short-term general hospital (02) ==
LOC: EDUNIT# 13:09 → EDBD 13:09 → ER 13:15
DX: R55 Syncope and collapse (principal); R79.89 Other specified abnormal findings of blood chemistry; E11.9 Type 2 diabetes mellitus without complications; F17.210 Nicotine dependence, cigarettes, uncomplicated; G93.89 Other specified disorders of brain; I10 Essential (primary) hypertension; Z79.4 Long term (current) use of insulin; Z79.811 Long term (current) use of aromatase inhibitors; Z79.82 Long term (current) use of aspirin; Z79.899 Other long term (current) drug therapy; Z86.73 Personal history of transient ischemic attack (TIA), and cerebral infarction without residual deficits; Z88.1 Allergy status to other antibiotic agents; Z88.2 Allergy status to sulfonamides
CPT/HCPCS: 36415; 70450; 71045; 80053; 81001; 82947; 83605; 84484; 85025; 93005; 99285; J7040; 82962; 99291